=== PATIENT | female | born 1960 | race Caucasian/White ===

== ENCOUNTER 2023-12-28 10:09 | Inpatient (IN) ==
[2023-12-28] MEDS: OPTIRAY 320 125ml IV ONE (10:27)
--- NOTE | 2023-12-28 10:30 | Emergency Department Note ---
History of Present Illness General Chief complaint: TIA Symptoms Stated complaint: LT HAND NUMBNESS, CONFUSED, HISTORY OF DVT Time Seen by Provider: 12/28/23 10:17 History of Present Illness Provider complaint: Strokelike symptoms Onset (ago): hour(s) 2 62-year-old female presents emergency department for strokelike symptoms. Patient reports at 8 AM she began having difficulty using her left arm. She states it felt uncoordinated. She denies any falls or traumas. Denies any headaches. No blood thinners. does report that the patient appears more confused. Home Medications Medication Instructions Recorded Confirmed Type cyanocobalamin (vitamin B-12) 1,000 mcg PO QPM ##0 07/17/14 12/28/23 History 1,000 mcg tablet (Vitamin B-12) folic acid 400 mcg tablet 400 mcg PO QPM ##0 07/17/14 12/28/23 History cholecalciferol (vitamin D3) 25 25 mcg PO DAILY 12/28/23 12/28/23 History mcg (1,000 unit) tablet (Vitamin D3) escitalopram oxalate 10 mg tablet 10 mg PO PM 12/28/23 12/28/23 History Allergies Allergy/AdvReac Type Severity Reaction Status Date / Time Sulfa (Sulfonamide Allergy Intermediate hives Verified 12/28/23 13:49 Antibiotics) Past Med/Surg History Problem List (Updated 12/28/23 @ 14:32 by Shawn Bergeron MD) Wide-complex tachycardia (Acute) Cerebrovascular accident (Acute) Medical History (Updated 12/28/23 @ 14:32 by Shawn Bergeron MD) Leukocytoclastic vasculitis Hypercholesterolemia History of cervical cancer LBBB (left bundle branch block) DVT (deep venous thrombosis) Anxiety Anemia Sjogrens syndrome Surgical History (Updated 12/28/23 @ 11:15 by Leticia Tolliver PA-C) History of cervical polypectomy Family History (Updated 12/28/23 @ 11:15 by Leticia Tolliver PA-C) Other Asthma Breast cancer Heart disease Hypertension Lung cancer Social History Smoking Status: Never smoker Second Hand Exposure: No; Do You Dip or Chew Tobacco: No; Tobacco Cessation Education Requested by Patient: No Hx Alcohol Use: No Hx Substance Use: No Preferred Language: Japanese Communication Ability: Effective Computer Typesetter Keyliner Required: No Beliefs That Will Affect Care: None Current Living Situation: Spouse Other Information That Helps Us Care for You: No Feels Safe at Home: Yes Safety Concerns: Feels Safe At This Time Assistive Devices: Glasses Physical Exam Vital Signs Vital Signs - 24 hr 12/28/23 10:11 12/28/23 10:26 12/28/23 10:33 Temperature 36.8 C Temperature Source Skin Pulse Rate 91 H Pulse Rate [Apical] 96 H Pulse Rate from SpO2 Sensor Pulse Rhythm [Apical] Pulse Strength [Apical] Respiratory Rate 16 19 Respiratory Effort / Characteristics Non-Labored Spontaneous Respiratory Depth Normal Respiratory Pattern Regular Blood Pressure 153/80 H 143/83 H Blood Pressure [Left Arm] 151/84 H Blood Pressure Mean 104 96 Blood Pressure Mean [Left Arm] 106 Blood Pressure Position [Left Arm] Pulse Oximetry 100 98 Oxygen Delivery Method Room Air Room Air Sepsis Recent Fever Within 48 Hours No Sepsis New/Unexplained Change in Mental Status N/A Sepsis Action Taken by Nursing No Action Required End-Tidal CO2 12/28/23 10:35 12/28/23 10:39 12/28/23 10:42 Temperature Temperature Source Pulse Rate 99 H 92 H 90 Pulse Rate [Apical] Pulse Rate from SpO2 Sensor Pulse Rhythm [Apical] Pulse Strength [Apical] Respiratory Rate 22 18 Respiratory Effort / Characteristics Respiratory Depth Respiratory Pattern Blood Pressure Blood Pressure [Left Arm] Blood Pressure Mean Blood Pressure Mean [Left Arm] Blood Pressure Position [Left Arm] Pulse Oximetry Oxygen Delivery Method Sepsis Recent Fever Within 48 Hours Sepsis New/Unexplained Change in Mental Status Sepsis Action Taken by Nursing End-Tidal CO2 12/28/23 10:45 12/28/23 10:49 12/28/23 10:54 Temperature Temperature Source Pulse Rate 98 H Pulse Rate [Apical] 85 Pulse Rate from SpO2 Sensor Pulse Rhythm [Apical] Regular Pulse Strength [Apical] Normal Respiratory Rate 18 32 H Respiratory Effort / Characteristics Non-Labored Respiratory Depth Normal Respiratory Pattern Regular Blood Pressure 132/90 Blood Pressure [Left Arm] 132/90 Blood Pressure Mean 100 Blood Pressure Mean [Left Arm] 104 Blood Pressure Position [Left Arm] Lying Pulse Oximetry Oxygen Delivery Method Sepsis Recent Fever Within 48 Hours Sepsis New/Unexplained Change in Mental Status Sepsis Action Taken by Nursing End-Tidal CO2 12/28/23 10:57 12/28/23 11:10 12/28/23 11:15 Temperature Temperature Source Pulse Rate 92 H 144 H Pulse Rate [Apical] Pulse Rate from SpO2 Sensor 146 H Pulse Rhythm [Apical] Pulse Strength [Apical] Respiratory Rate 35 H 26 H Respiratory Effort / Characteristics Respiratory Depth Respiratory Pattern Blood Pressure 130/98 Blood Pressure [Left Arm] Blood Pressure Mean 108 Blood Pressure Mean [Left Arm] Blood Pressure Position [Left Arm] Pulse Oximetry 97 Oxygen Delivery Method Sepsis Recent Fever Within 48 Hours Sepsis New/Unexplained Change in Mental Status Sepsis Action Taken by Nursing End-Tidal CO2 12/28/23 11:15 12/28/23 11:15 12/28/23 11:15 Temperature Temperature Source Pulse Rate Pulse Rate [Apical] Pulse Rate from SpO2 Sensor Pulse Rhythm [Apical] Pulse Strength [Apical] Respiratory Rate Respiratory Effort / Characteristics Respiratory Depth Respiratory Pattern Blood Pressure 128/96 128/96 128/96 Blood Pressure [Left Arm] Blood Pressure Mean 117 117 117 Blood Pressure Mean [Left Arm] Blood Pressure Position [Left Arm] Pulse Oximetry Oxygen Delivery Method Sepsis Recent Fever Within 48 Hours Sepsis New/Unexplained Change in Mental Status Sepsis Action Taken by Nursing End-Tidal CO2 12/28/23 11:18 12/28/23 11:18 12/28/23 11:18 Temperature Temperature Source Pulse Rate 151 H 148 H Pulse Rate [Apical] 145 H Pulse Rate from SpO2 Sensor 145 H Pulse Rhythm [Apical] Pulse Strength [Apical] Respiratory Rate 20 20 Respiratory Effort / Characteristics Respiratory Depth Respiratory Pattern Blood Pressure Blood Pressure [Left Arm] 128/96 Blood Pressure Mean Blood Pressure Mean [Left Arm] 106 Blood Pressure Position [Left Arm] Pulse Oximetry 93 97 Oxygen Delivery Method Room Air Sepsis Recent Fever Within 48 Hours Sepsis New/Unexplained Change in Mental Status Sepsis Action Taken by Nursing End-Tidal CO2 12/28/23 11:35 12/28/23 11:35 12/28/23 11:35 Temperature Temperature Source Pulse Rate Pulse Rate [Apical] Pulse Rate from SpO2 Sensor Pulse Rhythm [Apical] Pulse Strength [Apical] Respiratory Rate Respiratory Effort / Characteristics Respiratory Depth Respiratory Pattern Blood Pressure 103/70 103/70 103/70 Blood Pressure [Left Arm] Blood Pressure Mean 82 82 82 Blood Pressure Mean [Left Arm] Blood Pressure Position [Left Arm] Pulse Oximetry Oxygen Delivery Method Sepsis Recent Fever Within 48 Hours Sepsis New/Unexplained Change in Mental Status Sepsis Action Taken by Nursing End-Tidal CO2 12/28/23 11:35 12/28/23 11:36 12/28/23 11:39 Temperature Temperature Source Pulse Rate 64 Pulse Rate [Apical] 71 Pulse Rate from SpO2 Sensor 64 Pulse Rhythm [Apical] Pulse Strength [Apical] Respiratory Rate 17 14 Respiratory Effort / Characteristics Non-Labored Respiratory Depth Normal Respiratory Pattern Blood Pressure 103/70 Blood Pressure [Left Arm] 103/70 Blood Pressure Mean 82 Blood Pressure Mean [Left Arm] 81 Blood Pressure Position [Left Arm] Pulse Oximetry 95 90 Oxygen Delivery Method Room Air Sepsis Recent Fever Within 48 Hours Sepsis New/Unexplained Change in Mental Status Sepsis Action Taken by Nursing End-Tidal CO2 26 12/28/23 11:40 12/28/23 11:40 12/28/23 11:42 Temperature Temperature Source Pulse Rate 92 H Pulse Rate [Apical] Pulse Rate from SpO2 Sensor Pulse Rhythm [Apical] Pulse Strength [Apical] Respiratory Rate 0 L Respiratory Effort / Characteristics Respiratory Depth Respiratory Pattern Blood Pressure 110/64 110/64 Blood Pressure [Left Arm] Blood Pressure Mean 77 77 Blood Pressure Mean [Left Arm] Blood Pressure Position [Left Arm] Pulse Oximetry Oxygen Delivery Method Sepsis Recent Fever Within 48 Hours Sepsis New/Unexplained Change in Mental Status Sepsis Action Taken by Nursing End-Tidal CO2 12/28/23 11:55 12/28/23 12:42 12/28/23 13:28 Temperature 36.7 C Temperature Source Oral Pulse Rate Pulse Rate [Apical] 108 H 73 73 Pulse Rate from SpO2 Sensor Pulse Rhythm [Apical] Pulse Strength [Apical] Respiratory Rate 20 20 19 Respiratory Effort / Characteristics Non-Labored Non-Labored Non-Labored Respiratory Depth Normal Normal Normal Respiratory Pattern Blood Pressure Blood Pressure [Left Arm] 134/71 121/70 137/72 Blood Pressure Mean Blood Pressure Mean [Left Arm] 92 87 93 Blood Pressure Position [Left Arm] Lying Pulse Oximetry 98 98 98 Oxygen Delivery Method Room Air Room Air Room Air Sepsis Recent Fever Within 48 Hours Sepsis New/Unexplained Change in Mental Status Sepsis Action Taken by Nursing End-Tidal CO2 12/28/23 13:35 Temperature Temperature Source Pulse Rate Pulse Rate [Apical] 66 Pulse Rate from SpO2 Sensor Pulse Rhythm [Apical] Pulse Strength [Apical] Respiratory Rate 20 Respiratory Effort / Characteristics Non-Labored Respiratory Depth Normal Respiratory Pattern Blood Pressure Blood Pressure [Left Arm] 131/76 Blood Pressure Mean Blood Pressure Mean [Left Arm] 94 Blood Pressure Position [Left Arm] Pulse Oximetry 98 Oxygen Delivery Method Room Air Sepsis Recent Fever Within 48 Hours Sepsis New/Unexplained Change in Mental Status Sepsis Action Taken by Nursing End-Tidal CO2 Physical Exam HENT: Exam performed. - Head: Normocephalic and atraumatic. EYES: Conjunctivae and EOM are normal. Right eye exhibits no discharge. Left eye exhibits no discharge. No scleral icterus. NECK: Normal range of motion. Neck supple. No JVD present. CV: Normal rate, regular rhythm, normal heart sounds and intact distal pulses. There is no peripheral edema. Palpable radial pulses bue. PULM/CHEST: Effort normal and breath sounds normal. No respiratory distress. No stridor. no wheezes. no rales. NEURO: NIHSS: 1 (7:1) Procedures Free Text Procedures Indication: Wide-complex tachycardia Verbal consent was obtained after the risks and benefits were explained. At this time, the risks of the procedure are less than the risks of NOT performing the procedure. A time out was taken and the correct patient and procedure identified. The patient was on supplemental oxygen and end tidal CO2 monitoring prior to the procedure. Suction, airway equipment, medications, respiratory equipment, ACLS cart, and appropriate personnel were prepared prior to the initiation of the procedure. Sedation was achieved utilizing Versed 2 mg and fentanyl 50 mcg. The biphasic defibrillator was set to 100 joules of energy and synched. After confirmation of sedation and "all clear" safety check the synchronized shock was delivered. This resulted in successful conversion of the dysrhythmia back into sinus rhythm. See nursing notes for dosages and times. There were no complications and the patient recovered uneventfully from the procedure. Course Course 1017: The patient was evaluated in room B1. A complete history and physical exam was performed Cardiac monitoring: An order was placed for continuous cardiac monitoring. The monitor shows a rate of 90 with sinus rhythm interpreted by me 1050: Spoke with Dr. Nadeem Coffman teleneurology who will evaluate the patient. 1110: CT of the head negative. Went to go discussed results with the patient and Dr. Silver who is on the telestroke cart. While discussing the possibility of pushing TNK, the patient started having PVCs and eventually went into what appeared to be a wide-complex tachycardia. Pads were applied to the patient and amiodarone bolus 150 mg or [address] Silver had no problems with starting the amiodarone and see there is no contraindication TNKase. After discussion with Dr. Silver about TNK while the amiodarone drip was infusing, the patient and elected for no TNK. 1120: Blood pressure signs stable. Patient reported no chest pain or difficulty breathing. Patient remained in wide-complex tachycardia. Patient does states she has a history of anxiety and feels very nervous. Ativan ordered for the patient with no significant improvement. Repeat bolus of amiodarone will be attempted. If this is unsuccessful we will most likely need to cardiovert the patient. 1130: Patient [place] tachycardia. No chest pain difficulty breathing. Blood pressure stable. Patient was cardioverted. See procedure note. After cardioversion patient appeared to have new left bundle branch block and hyperacute T waves. Will attempt to contact cardiology. 1145: Heart alert page. Hospitalist team Lillian at bedside 1150: Patient remains in sinus rhythm. Dr. Foley came to bedside. He stated he thought that the patient was in atrial flutter with a Albrecht C. He recommended no need for cardiac catheterization at this time. No heparin at this time. He recommends continuing the amiodarone drip and cardiology will be on consult patient is admitted to the hospital seen. Administered Medications Amiodarone HCl/Dextrose (Nexterone / D5w) 360 mg in 200 mls @ 33.333 mls/hr IV ONE ONE Stop: 12/28/23 17:13 Last Admin: 12/28/23 11:30 Dose: 1 mg/min, 33.3 mls/hr Documented By: MAREK Co-signed By: ISAK Metoprolol Tartrate (Metoprolol Tartrate 25 Mg Tab) 12.5 mg PO Q6H [facility] Stop: 01/27/24 12:29 Last Admin: 12/28/23 12:41 Dose: 12.5 mg Documented By: MAREK Discontinued Medications Amiodarone HCl/Dextrose (Amiodarone 150mg / 100ml D5w) Confirm Administered Dose 150 mg IV .STK-MED ONE Stop: 12/28/23 11:05 Last Admin: 12/28/23 11:16 Dose: Not Given Documented By: MAREK Amiodarone HCl (Amiodarone Iv Bolus & Drip) 1 each IV NOW STA; Protocol Stop: 12/28/23 11:05 Last Admin: 12/28/23 11:17 Dose: Not Given Documented By: ES Aspirin (Aspirin 81 Mg Chew) 324 mg PO NOW STA Stop: 12/28/23 11:38 Last Admin: 12/28/23 11:40 Dose: Not Given Documented By: ES Aspirin (Aspirin Chew 324 Mg) Confirm Administered Dose 324 mg .ROUTE .STK-MED ONE Stop: 12/28/23 11:38 Last Admin: 12/28/23 11:40 Dose: Not Given Documented By: ES Aspirin (Aspirin Chew 324 Mg) 324 mg PO ONCE ONE Stop: 12/28/23 11:39 Last Admin: 12/28/23 11:39 Dose: 324 mg Documented By: ES Clopidogrel Bisulfate (Clopidogrel Bisulfate 300 Mg Tab) Confirm Administered Dose 300 mg .ROUTE .STK-MED ONE Stop: 12/28/23 11:38 Last Admin: 12/28/23 11:40 Dose: Not Given Documented By: ES Clopidogrel Bisulfate (Clopidogrel Bisulfate 300 Mg Tab) 300 mg PO NOW STA Stop: 12/28/23 11:38 Last Admin: 12/28/23 11:39 Dose: 300 mg Documented By: ES Fentanyl Citrate (Fentanyl Citrate Pf 100 Mcg/2 Ml Vial) Confirm Administered Dose 100 mcg .ROUTE .STK-MED ONE Stop: 12/28/23 11:27 Last Increment: 12/28/23 11:34 Dose: 50 mcg Documented By: ES Fentanyl Citrate (Fentanyl Citrate Pf 100 Mcg/2 Ml Vial) Confirm Administered Dose 100 mcg .ROUTE .STK-MED ONE Stop: 12/28/23 11:46 Last Admin: 12/28/23 12:08 Dose: Not Given Documented By: ES Heparin Sodium (Porcine) (Heparin (Porcine) 1000 Unit/Ml 10 Ml (Shingles Roofer Helper Use Only)) Confirm Administered Dose 10,000 units .ROUTE .STK-MED ONE Stop: 12/28/23 11:45 Last Admin: 12/28/23 12:08 Dose: Not Given Documented By: ES Heparin Sodium/Sodium Chloride (Heparin In Nss Infusion 1000 Unit/500 Ml (2 U/Ml) Bag) Confirm Administered Dose 3,000 units IV .STK-MED ONE Stop: 12/28/23 11:46 Last Admin: 12/28/23 12:08 Dose: Not Given Documented By: ES Amiodarone HCl/Dextrose (Nexterone / D5w) 150 mg in 100 mls @ 600 mls/hr IV NOW STA Stop: 12/28/23 11:13 Last Infusion: 12/28/23 11:18 Dose: Infused Documented By: MAREK Co-signed By: YUDELKA Admin: 12/28/23 11:09 Dose: 600 mls/hr Documented By: MAREK Co-signed By: YUDELKA Amiodarone HCl/Dextrose (Nexterone / D5w) 150 mg in 100 mls @ 600 mls/hr IV NOW STA Stop: 12/28/23 11:50 Last Infusion: 12/28/23 11:28 Dose: Infused Documented By: MAREK Co-signed By: ISAK Admin: 12/28/23 11:18 Dose: 600 mls/hr Documented By: MAREK Co-signed By: ISAK Ioversol (Optiray 320 125ml) 112 ml IV ONCE ONE Stop: 12/28/23 10:27 Last Admin: 12/28/23 10:27 Dose: 112 ml Documented By: MILEY Ioversol (Optiray 350) Confirm Administered Dose 1 ml .ROUTE .STK-MED ONE Stop: 12/28/23 11:47 Last Admin: 12/28/23 12:08 Dose: Not Given Documented By: MAREK Lorazepam (Lorazepam 1 Mg/1 Ml Syr Ed Inj Use) Confirm Administered Dose 1 mg .ROUTE .STK-MED ONE Stop: 12/28/23 11:08 Last Admin: 12/28/23 11:17 Dose: 1 mg Documented By: MAREK Midazolam HCl (Midazolam Hcl 1 Mg/Ml 2ml Vial) Confirm Administered Dose 2 mg .ROUTE .STK-MED ONE Stop: 12/28/23 11:22 Last Admin: 12/28/23 11:34 Dose: 2 mg Documented By: MAREK Midazolam HCl (Midazolam Hcl 1 Mg/Ml 2ml Vial) Confirm Administered Dose 2 mg .ROUTE .STK-MED ONE Stop: 12/28/23 11:45 Last Admin: 12/28/23 12:08 Dose: Not Given Documented By: MAREK Miscellaneous (Stat Iv Infusion Titration Per Protocol) 1 each N/A NOW STA Stop: 12/28/23 11:05 Last Admin: 12/28/23 11:17 Dose: Not Given Documented By: MAREK Nicardipine HCl (Nicardipine 2,000 Mcg/20 Ml Syr) Confirm Administered Dose 2,000 mcg .ROUTE .STK-MED ONE Stop: 12/28/23 11:46 Last Admin: 12/28/23 12:08 Dose: Not Given Documented By: MAREK Nicardipine HCl (Nicardipine 2,000 Mcg/20 Ml Syr) Confirm Administered Dose 2,000 mcg .ROUTE .STK-MED ONE Stop: 12/28/23 11:47 Last Admin: 12/28/23 12:08 Dose: Not Given Documented By: MAREK Nicardipine HCl (Nicardipine 2,000 Mcg/20 Ml Syr) Confirm Administered Dose 2,000 mcg .ROUTE .STK-MED ONE Stop: 12/28/23 11:48 Last Admin: 12/28/23 12:09 Dose: Not Given Documented By: MAREK Nitroglycerin/Dextrose (Nitroglycerin/D5w 100mcg/Ml 20ml Syr) Confirm Administered Dose 2,000 mcg .ROUTE .STK-MED ONE Stop: 12/28/23 11:47 Last Admin: 12/28/23 12:09 Dose: Not Given Documented By: MAREK Critical Care Time Critical Care Time: Yes Total Critical Care Time: 63 I have personally spent greater than 63 minutes of critical care time in the direct management of this patient. This includes bedside care, interpretation of diagnostic studies, and testing, discussion with consultants, patient, and family members, and other required patient management activities. This 63 minutes is in excess of all separately billable procedures. Medical Decision Making Laboratory Data Attestation: I reviewed the patient's lab results. 12/28/23 10:22 12/28/23 10:22 Lab Results 12/28/23 12/28/23 Range/Units 10:20 10:22 WBC 4.55 L (4.8-10.8) K/ul RBC 4.22 (4.20-5.40) M/uL Hgb 12.1 (12.0-16.0) g/dl Hct 36.8 L (37.0-47.0) % MCV 87.2 (80.0-100.0) fL MCH 28.7 (25.0-34.0) pg MCHC 32.9 (32.0-36.0) g/dL RDW Std Deviation 41.6 (36.4-46.3) fL RDW Coeff of Wilber 13.3 (11.5-14.5) % Plt Count 236 (130-400) K/uL MPV 10.5 (9.4-12.4) fL Immature Gran % (Auto) 0.7 % Neut % (Auto) 81.8 % Lymph % (Auto) 13.8 % [place] % (Auto) 2.9 % Eos % (Auto) 0.4 % Baso % (Auto) 0.4 % Neut # (Auto) 3.72 (1.40-6.50) K/uL Lymph # (Auto) 0.63 L (1.20-3.40) K/uL [place] # (Auto) 0.13 (0.11-0.59) K/uL Eos # (Auto) 0.02 (0.00-0.50) K/uL Baso # (Auto) 0.02 (0.00-0.20) K/uL Immature Gran # (Auto) 0.03 (0.01-0.20) K/uL PT 10.7 (9.0-12.0) Seconds INR 1.0 (0.9-1.1) APTT 23 (21-31) Seconds PTT Ratio 0.9 Sodium 139 (136-145) mmol/L Potassium 3.6 (3.5-5.1) mmol/L Chloride 105 (98-107) mmol/L Carbon Dioxide 26 (21-32) mmol/L Anion Gap 8 (3-11) BUN 18 (6-23) mg/dl Creatinine 0.89 (0.6-1.2) mg/dl Est Cr Clr Drug Dosing 64.9 ml/min eGFR 72.80 BUN/Creatinine Ratio 20.2 H (10-20) Glucose 115 H (70-99(Fasting)) mg/dl POC Glucose 118 H (70-99) mg/dl Calcium 9.6 (8.6-10.3) mg/dl Magnesium 1.9 (1.7-2.4) mg/dl Total Bilirubin 0.5 (0.2-1.0) mg/dl AST 12 L (13-39) U/L ALT 8 (7-52) U/L Alkaline Phosphatase 71 (34-104) U/L Troponin I High Sens 5.5 (0-14) pg/ml Total Protein 9.2 H (6.0-8.3) gm/dl Albumin 4.1 (3.4-5.0) gm/dl Globulin 5.1 H (2.5-4.0) gm/dl Albumin/Globulin Ratio 0.8 L (0.9-2) Blood Type A Positive Antibody Screen NEGATIVE Imaging Data Attestation: I personally reviewed and interpreted this imaging study as follows: My Impression: CT head: No [facility] Radiologist's Impression: Chest X-Ray 12/28/23 10:17 XR chest 1V portable CLINICAL HISTORY: neuro deficit, acute stroke suspected COMPARISON STUDY: No previous studies for comparison. FINDINGS: Screws within the proximal left humerus are incidentally noted. There is no pneumothorax. Minimal bibasilar opacities are present. There is a small right pleural effusion. Cardiomediastinal silhouette is unremarkable. There is no evidence for overt pulmonary edema. IMPRESSION: 1. Small right pleural effusion. 2. Mild bibasilar opacities which favor atelectasis. An infectious process could appear similar but is considered less likely. ACT 112: Negative or not required by law. Electronically signed by: Fuad Ramos M.D. 12/28/2023 11:[address] 12/28/23 10:17 CT OF THE HEAD WITHOUT CONTRAST CLINICAL HISTORY: neuro deficit, acute stroke suspected COMPARISON STUDY: No previous studies for comparison. TECHNIQUE: Helical axial images of the head were obtained without IV contrast. Automated exposure control was utilized for the study. A dose lowering technique was utilized adhering to the principles of ALARA. FINDINGS: No acute intracranial hemorrhage, midline shift or mass effect is present. The ventricular system is unremarkable. The basal cisterns are patent. No extra-axial collections are present. There are no findings to suggest acute dural sinus thrombosis or acute territorial infarct. No significant calvarial abnormalities are present. Visualized portions of the sinuses and mastoid air cells are clear. IMPRESSION: No acute intracranial findings. ACT 112: Negative or not required by law. Electronically signed by: Fuad Ramos M.D. 12/28/2023 10:44 AM Head CTA 12/28/23 10:17 CT angio head w con, CT angio neck with con CLINICAL HISTORY: 63 years-old Female with neuro deficit, acute stroke suspected. Acute stroke like symptoms COMPARISON STUDY: Head CT of same day TECHNIQUE: Following the IV administration of 112 cc of Optiray, CT angiogram of the head and neck was performed. 3-D MIPS images are created and assessed. IV contrast was administered without complication. All measurements were obtained according to NASCET criteria. A dose lowering technique was utilized adhering to the principles of ALARA. CT DOSE: 1224.08 mGy.cm FINDINGS: CT ANGIOGRAM OF THE HEAD AND NECK: Three-vessel morphology of the thoracic aortic arch. Common carotid arteries are patent. There is moderate atherosclerotic plaque of the carotid bulbs without significant stenosis. The bilateral anterior and middle cerebral arteries are also patent. The vertebrobasilar system and posterior cerebral arteries are widely patent. There is no aneurysm, high-grade stenosis, or proximal branch occlusion identified. Dural sinuses appear patent. ORIF changes within the mandible. Small layering pleural effusions. Lung apices are clear without pneumothorax. Unremarkable soft tissues. No acute fracture. IMPRESSION: Unremarkable CTA of the head and neck. ACT 112: Negative or not required by law. The above report was generated using voice recognition software. It may contain grammatical, syntax or spelling errors. Electronically signed by: Cullen Hollis M.D. 12/28/2023 11:02 AM Neck CTA 12/28/23 10:17 CT angio head w con, CT angio neck with con CLINICAL HISTORY: 63 years-old Female with neuro deficit, acute stroke suspected. Acute stroke like symptoms COMPARISON STUDY: Head CT of same day TECHNIQUE: Following the IV administration of 112 cc of Optiray, CT angiogram of the head and neck was performed. 3-D MIPS images are created and assessed. IV contrast was administered without complication. All measurements were obtained according to NASCET criteria. A dose lowering technique was utilized adhering to the principles of ALARA. CT DOSE: 1224.08 mGy.cm FINDINGS: CT ANGIOGRAM OF THE HEAD AND NECK: Three-vessel morphology of the thoracic aortic arch. Common carotid arteries are patent. There is moderate atherosclerotic plaque of the carotid bulbs without significant stenosis. The bilateral anterior and middle cerebral arteries are also patent. The vertebrobasilar system and posterior cerebral arteries are widely patent. There is no aneurysm, high-grade stenosis, or proximal branch occlusion identified. Dural sinuses appear patent. ORIF changes within the mandible. Small layering pleural effusions. Lung apices are clear without pneumothorax. Unremarkable soft tissues. No acute fracture. IMPRESSION: Unremarkable CTA of the head and neck. ACT 112: Negative or not required by law. The above report was generated using voice recognition software. It may contain grammatical, syntax or spelling errors. Electronically signed by: Cullen Hollis M.D. 12/28/2023 11:02 AM ECG Data Attestation: I personally reviewed and interpreted this ECG as follows: Rate (beats per minute): 93 Rhythm: + normal sinus ECG Intervals/blocks: + Normal QRS, + Normal [place] and + Normal QT-c ECG ST segments: + Normal ST segments Additional Comments: EKG #2 at 1104: Wide-complex tachycardia with rate 150. Q or S126 QTc 364 EKG #3 at 1111: V. tach with rate of 155. QRS 120 QTc 555. EKG #4 at 1124 status post amiodarone 150 mg bolus over 10 minutes: Wide-complex tachycardia with rate 146. QRS 134 QTc 433 EKG #5 at 1129 status post 100 J cardioversion: Sinus rhythm with rate of 81. [place] 146 QRS [address] elevation or ST depression. Left bundle branch block present. Hyperacute T waves in leads V1, V2, V3. [facility] Narrative 1017: The patient was evaluated in room B1. A complete history and physical exam was performed Cardiac monitoring: An order was placed for continuous cardiac monitoring. The monitor shows a rate of 90 with sinus rhythm interpreted by me 1050: Spoke with Dr. Nadeem Coffman teleneurology who will evaluate the patient. 1110: CT of the head negative. Went to go discussed results with the patient and Dr. Silver who is on the telestroke cart. While discussing the possibility of pushing TNK, the patient started having PVCs and eventually went into what appeared to be a wide-complex tachycardia. Pads were applied to the patient and amiodarone bolus 150 mg or [address] Silver had no problems with starting the amiodarone and see there is no contraindication TNKase. After discussion with Dr. Silver about TNK while the amiodarone drip was infusing, the patient and elected for no TNK. 1120: Blood pressure signs stable. Patient reported no chest pain or difficulty breathing. Patient remained in wide-complex tachycardia. Patient does states she has a history of anxiety and feels very nervous. Ativan ordered for the patient with no significant improvement. Repeat bolus of amiodarone will be attempted. If this is unsuccessful we will most likely need to cardiovert the patient. 1130: Patient [place] tachycardia. No chest pain difficulty breathing. Blood pressure stable. Patient was cardioverted. See procedure note. After cardioversion patient appeared to have new left bundle branch block and hyperacute T waves. Will attempt to contact cardiology. 1145: Heart alert page. Hospitalist team Lillian at bedside 1150: Patient remains in sinus rhythm. Dr. Foley came to bedside. He stated he thought that the patient was in atrial flutter with a Albrecht C. He recommended no need for cardiac catheterization at this time. No heparin at this time. He recommends continuing the amiodarone drip and cardiology will be on consult patient is admitted to the hospital seen. Impression & Plan Cerebrovascular accident, Wide-complex tachycardia Discharge Plan Visit Data Chief Complaint: TIA Symptoms Stated Complaint: LT HAND NUMBNESS, CONFUSED, HISTORY OF DVT ED Provider: Shawn Bergeron Discharge Problem: Cerebrovascular accident, Wide-complex tachycardia Patient Disposition: Admitted As Inpatient Forms Stand Alone Forms: [facility] Prescriptions Prescriptions: No Action ALBUTEROL SULFATE (PROAIR HFA) 108 MCG/ AER 2 puff Inhalation QID PRN (Reason: Shortness of Breath) Qty: 0 Ferrous Sulfate 325 MG tablet 325 mg PO TIDM Qty: 90 0RF Warfarin Sod (Coumadin) 5 MG tablet 5 mg PO DAILY@16 Qty: 30 0RF FERROUS SULFATE 325 MG tablet 325 mg PO TID Qty: 0 WARFARIN SODIUM (COUMADIN) 5 MG tablet 5 mg PO 6XWK Qty: 0 Warfarin Sod (Coumadin) 2.5 MG tablet 2.5 mg PO qtues Qty: 0 CYANOCOBALAMIN (VITAMIN B12) 1,000 MCG tablet 1,000 mcg PO QPM Qty: 0 Folic Acid 400 MCG tablet 1,000 mcg PO QPM Qty: 0 Sertraline (Zoloft) 50 MG tablet 50 mg PO QAM Qty: 0 Referrals Referrals: Sudhir Vines DO [Primary Care Provider] - Discharge Problem: Cerebrovascular accident Qualifiers: CVA mechanism: unspecified Qualified Code(s): I63.9 - Cerebral infarction, unspecified
--- NOTE | 2023-12-28 10:46 | CT Scan Report ---
CT OF THE HEAD WITHOUT CONTRAST CLINICAL HISTORY: neuro deficit, acute stroke suspected COMPARISON STUDY: No previous studies for comparison. TECHNIQUE: Helical axial images of the head were obtained without IV contrast. Automated exposure con trol was utilized for the study. A dose lowering technique was utilized adhering to the principles o f ALARA. FINDINGS: No acute intracranial hemorrhage, midline shift or mass effect is present. The ventricular system is unremarkable. The basal cisterns are patent. No extra-axial collections are present. There are no findings to suggest acute dural sinus thrombosis or acute territorial infarct. No significant calvarial abnormalities are present. Visualized portions of the sinuses and mastoid air cells are matt ar. IMPRESSION: No acute intracranial findings. ACT 112: Negative or not required by law. Electronically signed by: Fuad Ramos M.D. 12/28/2023 10:44 AM
[2023-12-28 10:51] LABS: Basophils # (auto) 0.02 K/uL (0.00-0.20); Basophils % (auto) 0.4 %; Eosinophils # (auto) 0.02 K/uL (0.00-0.50); Eosinophils % (auto) 0.4 %; Hematocrit (blood only) 36.8 % (37.0-47.0); Hemoglobin 12.1 g/dl (12.0-16.0); Immature Granulocytes # (auto) 0.03 K/uL (0.01-0.20); Immature Granulocytes % (auto) 0.7 %; Lymphocytes # (auto) 0.63 K/uL (1.20-3.40); Lymphocytes % (auto) 13.8 %; Mean Corpuscular Hemoglobin 28.7 pg (25.0-34.0); Mean Corpuscular Hgb Conc 32.9 g/dL (32.0-36.0); Mean Corpuscular Volume 87.2 fL (80.0-100.0); Mean Platelet Volume 10.5 fL (9.4-12.4); Monocytes # (auto) 0.13 K/uL (0.11-0.59); Monocytes % (auto) 2.9 %; Neutrophils # (auto) 3.72 K/uL (1.40-6.50); Neutrophils % (auto) 81.8 %; Platelet Count 236 K/uL (130-400); RDW Coefficient of Variation 13.3 % (11.5-14.5); RDW Standard Deviation 41.6 fL (36.4-46.3); Red Blood Count 4.22 M/uL (4.20-5.40); White Blood Count 4.55 K/ul (4.8-10.8)
--- NOTE | 2023-12-28 11:03 | CT Scan Report ---
CT angio head w con, CT angio neck with con CLINICAL HISTORY: 63 years-old Female with neuro deficit, acute stroke suspected. Acute stroke lik e symptoms COMPARISON STUDY: Head CT of same day TECHNIQUE: Following the IV administration of 112 cc of Optiray, CT angiogram of the head and neck wa s performed. 3-D MIPS images are created and assessed. IV contrast was administered without complicat ion. All measurements were obtained according to NASCET criteria. A dose lowering technique was utili zed adhering to the principles of ALARA. CT DOSE: 1224.08 mGy.cm FINDINGS: CT ANGIOGRAM OF THE HEAD AND NECK: Three-vessel morphology of the thoracic aortic arch. Common carotid arteries are patent. There is mod erate atherosclerotic plaque of the carotid bulbs without significant stenosis. The bilateral anterio r and middle cerebral arteries are also patent. The vertebrobasilar system and posterior cerebral art eries are widely patent. There is no aneurysm, high-grade stenosis, or proximal branch occlusion iden tified. Dural sinuses appear patent. ORIF changes within the mandible. Small layering pleural effusions. Lung apices are clear without pne umothorax. Unremarkable soft tissues. No acute fracture. IMPRESSION: Unremarkable CTA of the head and neck. ACT 112: Negative or not required by law. The above report was generated using voice recognition software. It may contain grammatical, syntax o r spelling errors. Electronically signed by: Cullen Hollis M.D. 12/28/2023 11:02 AM
--- NOTE | 2023-12-28 11:03 | XRay Report ---
XR chest 1V portable CLINICAL HISTORY: neuro deficit, acute stroke suspected COMPARISON STUDY: No previous studies for comparison. FINDINGS: Screws within the proximal left humerus are incidentally noted. There is no pneumothorax. M inimal bibasilar opacities are present. There is a small right pleural effusion. Cardiomediastinal si lhouette is unremarkable. There is no evidence for overt pulmonary edema. IMPRESSION: 1. Small right pleural effusion. 2. Mild bibasilar opacities which favor atelectasis. An infectious process could appear similar but i s considered less likely. ACT 112: Negative or not required by law. Electronically signed by: Fuad Ramos M.D. 12/28/2023 11:01 AM
[2023-12-28] MEDS ORDERED: 0.2 MICRON FILTER SET 1 EACH IV STA (11:04)
[2023-12-28 11:07] LABS: Albumin Globulin Ratio 0.8 (0.9-2); Albumin Level 4.1 gm/dl (3.4-5.0); BUN Creatinine Ratio 20.2 (10-20); Bilirubin,Total 0.5 mg/dl (0.2-1.0); Calcium 9.6 mg/dl (8.6-10.3); Creatinine Clr Calc Pharmacy 64.9 ml/min; Globulin 5.1 gm/dl (2.5-4.0); Magnesium 1.9 mg/dl (1.7-2.4); Potassium 3.6 mmol/L (3.5-5.1); Total Protein 9.2 gm/dl (6.0-8.3)
[2023-12-28] MEDS: AMIODARONE / D5W 150 MG/100 ML BAG IV STA ×2 (11:09→11:18)
[2023-12-28 11:10] LABS: Troponin I High Sensitivity 5.5 pg/ml (0-14)
[2023-12-28] MEDS: AMIODARONE 150MG / 100ML D5W IV ONE (11:16)
[2023-12-28] MEDS: AMIODARONE IV BOLUS & DRIP IV STA (11:17)
[2023-12-28] MEDS: LORazepam 1 MG/1 ML SYR ED Inj Use ONE (11:17)
[2023-12-28] MEDS: STAT IV Infusion **Titration per Protocol STA (11:17)
[2023-12-28 11:18] LABS: Partial Thromboplastin Ratio 0.9; Partial Thromboplastin Time 23 Seconds (21-31); Prothrombin Time 10.7 Seconds (9.0-12.0)
[2023-12-28] MEDS: AMIODARONE / D5W 360 MG/200 ML BAG IV ONE (11:30)
[2023-12-28] MEDS: MIDAZOLAM HCL 1 MG/ML 2ML VIAL ONE ×2 (11:34→12:08)
[2023-12-28] MEDS: fentaNYL citrate PF 100 MCG/2 ML VIAL ONE ×2 (11:34→12:08)
[2023-12-28] MEDS: ASPIRIN CHEW 324 MG PO ONE (11:39)
[2023-12-28] MEDS: CLOPIDOGREL BISULFATE 300 MG TAB PO STA (11:39)
[2023-12-28] MEDS: ASPIRIN CHEW 324 MG ONE (11:40)
[2023-12-28] MEDS: CLOPIDOGREL BISULFATE 300 MG TAB ONE (11:40)
[2023-12-28] MEDS: ASPIRIN 81 MG CHEW PO STA (11:40)
[2023-12-28] MEDS ORDERED: 0.2 MICRON FILTER SET 1 EACH IV ONE (11:41)
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
[2023-12-28] MEDS: HEPARIN (PORCINE) 1000 UNIT/ML 10 ML (CATH LAB USE ONLY) ONE (12:08)
[2023-12-28] MEDS: OPTIRAY 350 ONE (12:08)
[2023-12-28] MEDS: niCARdipine 2,000 MCG/20 ML SYR ONE ×3 (12:08→12:09)
[2023-12-28] MEDS: NITROGLYCERIN/D5W 100MCG/ML 20ML SYR ONE (12:09)
[2023-12-28] MEDS: METOPROLOL TARTRATE 25 MG TAB PO SCH (12:41)
--- OUTSIDE RECORDS SUMMARY | 2023-12-28 15:16 | External Medical Summary | Summary of Care ---
Author Name Unknown Organization [facility] Address [address] [facility] [place] [address] Phone [phone] Care Team Providers Care Hydrogen Plant Operator Name Role Phone Marleny Choi DO Primary Care Provider [phone] Reason for Visit * Reason Comments eRx-Medication Refill Encounter Details Date Type Department Care Team (Late st Contact Info) Description 11/12/2023 Refill Family Practice [facility] [address] [facility] [place] [address] Marleny Choi DO [address] [facility] [place] [address] LUKE (generalized anxiety disorder) Allergies Active Allergy Reactions Criticality Noted Date Comments Pollen Other (Please comment) 07/08/2022 sneeze Sulfa Antibiotics 04/29/2000 Hives documented as of this encounter (statuses as of 11/13/2023) Medications Medication Sig Dispensed Refills Start Date End Date Status Cyanocobalamin (VITAMIN B-12) 1000 MCG Tablet 1 daily Active folic acid 1 MG Tablet 1 daily Active Cholecalciferol (VITAMIN D) 1000 UNITS Tablet 5 Tablets. Active Escitalopram Oxalate 10 MG Oral Tablet (Lexapro)Indicati ons:LUKE (generalized anxiety disorder) Take 1 tablet by mouth once daily 90 Tablet 2 11/13/2023 Active Escitalopram Oxalate 10 MG Oral Tablet (Lexapro)Indicati ons:LUKE (generalized anxiety disorder) Take 1 Tablet by mouth daily. 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 LBBB (left bundle branch block) 04/12/2014 Vitamin D deficiency 12/07/2013 Overview: Taking 1000 IU daily. Sjogren's syndrome 06/20/2013 Overview: Followed by Endocrine. Overweight (BMI 25.0-29.9) 11/24/2012 Hypercholesterolemia 09/29/2011 Overview: LDL 141 in 2009 Family history of other cardiovascular diseases 04/21/2005 Overview: ICD-10 update of inactive term FAM HX-DIABETES MELLITUS 04/21/2005 FM [id number] DIS NEC 04/21/2005 documented as of this encounter (statuses as of 11/13/2023) Resolved Problems Problem Noted Date Diagnosed Date Resolved Date Cancer of cervix 10/02/2017 07/09/2021 Overview: 2003, cone, for microinvasive cancer,at [facility]. Nl paps since. 2018 Pap and HPV negative. History of loop electrical e xcision procedure (LEEP) 01/09/2015 01/09/2015 Overview: 2003 Squamous Cell Malignant neoplasm of corpus uteri 01/09/2015 01/14/2017 Overview: 2003. Annual paps. DVT (deep venous thrombosis) 05/03/2014 02/05/2015 Overview: 04/12/2014 LLE Presence of inferior vena cava filter 04/12/2014 07/23/2014 Overview: Removed 07/17/2014 Jasmin Soriano MD Warfarin anticoagulation 04/12/2014 Overview: 04/12/2014 extensive DVT LLE, TPA, thrombectomy and IVC filter placed. Jasmin Soriano MD at [facility] 07/17/2014 IVC filter removed Positive RADHA (antinuclear antibody) 05/15/2013 06/20/2013 Acute bronchitis, complicated 04/22/2009 03/27/2014 NONE 01/20/2002 11/24/2012 documented as of this encounter (statuses as of 11/13/2023) Immunizations Name Administration Dates Next Due COVID-19 mRNA, LNP-s, No Pre serve, 2-Dose Series (Pfizer) 07/05/2020,06/14/2020 Pneumococcal Polysaccharide PPV23 (Pneumovax) Seasonal Influenza, PF, 6 M & above, IM , (FluLaval or Fluzone) 11/28/2020,01/15/2018 Seasonal Influenza, Quadrivalent, No Preserve, I M 11/27/2014 TDAP (age 10 and older)(Boostrix) 09/03/2020 TDAP, Age 7 and older, IM (Adacel) 04/28/2008 Zoster Vaccine Recombinant (Shingrix) 12/16/2022 ,06/10/2022 documented as of this encounter Social History Tobacco Use Types Packs/Day Years Used Date Smoking Tobacco: Never Smokeless Tobacco: Never Alcohol Use Standard Drinks/Week Comments No 0 (1 standard drink = 0.6 oz pur e alcohol) PHQ-2 Answer Date Recorded PHQ-2 Score 0 06/21/2019 Hunger Vital Sign Answer Date Recorded Within the past 12 months, y ou worried that your food would run out before you got the money to buy more. Never true 03/05/19 24 Within the past 12 months, t he food you bought just didn't last and you didn't have money to get more. Never true 03/05/2023 Childcare Answer Date Recorded Do you feel overwhelmed with taking care of a child, family member or friend? No 03/05/2023 Does your family need help f inding childcare? (Household - for ages 0-17 years) Not on file 03/05/2023 Clothing Answer Date Recorded Have you been unable to get clothing when it was really needed? Yes 03/05/2023 Is your family able to get c lothes or diapers when needed? (Household - for ages 0-17 years) Not on file 03/05/2023 Personal Safety Answer Date Recorded Do you feel unsafe or have concerns for your saf ety? No 03/05/2023 Do you have concerns for you r family's safety? (Household - for ages 0-17 years) Not on file 03/05/2023 Utilities Answer Date Recorded Do you have trouble paying y our heating, water, or electric bill? No 03/05/2023 Is your family able to pay t he heat, water, or electric bill? (Household - for ages 0-17 years) Not on file 03/05/2023 Does your family have access to good internet? (Household - for ages 0-17 years) Not on file 03/05/2023 Employment Status Answer Date Recorded Are you unemployed or without regular income? No 03/05/2023 Does the household have a re lar source of income? (Household - for ages 0-17 years) Not on file 03/05/2023 Social Connections Answer Date Recorded How often do you feel lonely or isolated from th ose around you? Never 03/05/2023 Financial Resource Strain Answer Date R ecorded Do you have any trouble payi ng for your medications, or do you think you might in the future? No 03/05/2023 Does your family have troubl e paying for medicine? (Household - for ages 0-17 years) Not on file 03/05/2023 Transportation Needs Answer Date Record ed READ ONLY Do you have troubl e getting a ride to medical visits or work? Never True 03/05/2023 Does your family have a hard time getting a ride to doctors visits? (Household - for ages 0-17 years) Not on file 03/05/2023 Has lack of transportation k ept you from medical appointments, meetings, work, or from getting things needed for daily living? Check all that apply. (Adult - for ages 18 years and over) Not on file 03/05/2023 Do you (or your family) have trouble finding or paying for a ride (transportation)? (Household - for ages 0-17 years) Not on file 03/05/2023 Housing Stability Answer Date Recorded Do you currently live in a s helter or have no steady place to sleep at night? No 03/05/2023 READ ONLY Do you think you a re at risk of becoming homeless? No 03/05/2023 Does your family worry about paying for your home or becoming homeless? (Household - for ages 0-17 years) Not on file 0 03/05/2023 Are you homeless or worried that you might be in the future? (Adult - for ages 18 years and over) Not on file Are you (or your family) norman eless or worried that you might be in the future? (Household - for ages 0-17 years) Not on file Food Insecurity Answer Date Recorded Do you need food for this week? No 03/05/2023 Are you able to get enough f ood for your family? (Household - for ages 0-17 years) Not on file 03/05/2023 Does your family need food t his week? (Household - for ages 0-17 years) Not on file 03/05/2023 Do you always have enough fo od for your family? (Household - for ages 0-17 years) Not on file 03/05/2023 Sex and Gender Information Value Date Recorded Sex Assigned at Female 11/19/2020 8:50 AM EDT Gender Identity Female 11/19/2020 8:50 AM EDT Sexual Orientation Straight 11/19/2020 8: 50 AM EDT Job Start Date Occupation Industry Not on file Not on file Not on file documented as of this encounter Miscellaneous Notes * Telephone Encounter - Janae Yu [facility] - 11/13/2023 11:42 AM EDT Signed Prescriptions: Disp Refills Escitalopram Oxalate 10 MG Oral Tablet (Le*90 Tab*2 Sig: Take 1 tablet by mouth once dailyAuthorizing Provider: MARLENY CHOI User: JANAE YU documented in this encounter Plan of Treatment Upcoming Encounters Date Type Department Care Team (Late st Contact Info) Description 02/01/2024 11:40 AM EST Office Visit Family Practice [facility] [address] [place] [address] Marleny Choi, [address] [place] [address] 02/12/2024 9:30 AM EST Imaging Radiology [facility] [address] [place] [address] 08/18/2024 10:30 AM EDT Office Visit Rheumatology [facility] [address] [place] [address] Vikas Gordon PA-C [address] [place] [address] 09/02/2024 11:30 AM EDT Office Visit Gynecology/Obstetics [place] [address] [place] [phone] Flores Valdovinos PA-C [address] [place] [address] Scheduled Procedures Name Priority Associated Diagnoses Date/Ti me COLONOSCOPY FLEXIBLE PROXIMAL DIAGNOSTIC Recall History of colon polyps Health Maintenance Due Date Last Done Comments HIV Screening 09/21/1975 Hepatitis C Screening 1978 Cologuard 2005 Fecal Occult Blood Test 2005 Sigmoidoscopy 2005 Depression Screening 06/15/2020 06/16/2019 Colonoscopy 07/13/2022 07/13/2017, 05/2017, 11/24/2011, Additional history exists Colorectal Cancer Screening 07/13/2022 COVID-19 Vaccine ( season) 2023 07/05/2020, 06/14/2020 Influenza Vaccine (FLU shot) (#1) 2023 11/28/2020, 01/15/2018, 11/27/2014 Mammogram 02/11/2024 02/10/2023, 01/11, 02/04/2021, Additional history exists Diabetes Screening 12/11/2025 12/11/2022, 0 07/09/2021, 05/16/2020, Additional history exists Pap Smear 09/02/2026 09/03/2023, 02/09, 02/24/2019, Additional history exists Lipid Panel 12/12/2027 12/11/2022, 06/11, 05/16/2020, Additional history exists Cervical Cancer Screening 09/02/2028 HPV/Co-Test 09/02/2028 09/03/2023 DTap/Tdap Vaccines (3 - Td or Tdap) 09/03/2030 09/03/2020, 04/28/2008 Pneumococcal Vaccine: Pediatrics (0 to 5 Years) and At-Risk Patients (6 to 64 Years) Aged Out 11/27/2014 No longer eligible based on patient's age to complete this topic RETIRED - COLONOSCOPY-EVERY 5 YRS AGES 18-100 Discontinued 07/13/2017, 07/13/2017, 11/24/2011, Additional history exists Zoster Vaccines Completed 12/16/2022, 06/10/2022 HPV (Gardasil) Vaccine Aged Out No lo nger eligible based on patient's age to complete this topic Hepatitis B Vaccine Aged Out No longe r eligible based on patient's age to complete this topic MENINGOCOCCAL (MENACTRA/MENVEO) Aged Out No longer eligible based on patient's age to complete this topic documented as of this encounter Medical Devices Not on filedocumented as of this encounter Visit Diagnoses Diagnosis LUKE (generalized anxiety disorder) Generalized anxiety disorder documented in this encounter Care Teams Hydrogen Plant Operator Relationship Specialty Start Date End Date Marleny Choi DO [address] [place], [place] [address] PCP - General Family Medicine 09/07/15 documented as of this encounter
--- OUTSIDE RECORDS SUMMARY | 2023-12-28 15:16 | External Medical Summary | Summary of Care ---
Author Name Unknown Organization [facility] Address [address] [facility] [place] [address] Phone [phone] Care Team Providers Care Fire Support Man Name Role Phone Sudhir Vines DO Primary Care Provider [phone] Reason for Visit * Reason Onset Date Comments Appointment 07/31/2023 Encounter Details Date Type Department Care Team (Late st Contact Info) Description 07/31/2023 Telephone Family Practice [facility] [address] [place] [address] [facility] [place] [address] Sudhir Vines DO [address] [facility] [place] [address] Appointment Allergies Active Allergy Reactions Criticality Noted Date Comments Pollen Other (Please comment) 07/08/2022 sneeze Sulfa Antibiotics 04/29/2000 Hives documented as of this encounter (statuses as of 10/05/2023) Medications Medication Sig Dispensed Refills Start Date End Date Status Cyanocobalamin (VITAMIN B-12) 1000 MCG Tablet 1 daily Active folic acid 1 MG Tablet 1 daily Active Cholecalciferol (VITAMIN D) 1000 UNITS Tablet 5 Tablets. Active Escitalopram Oxalate 10 MG Oral Tablet (Lexapro)Indications: LUKE (generalized anxiety disorder) Take 1 Tablet by mouth daily. 30 Tablet 5 05/28/2023 Active documented as of this encounter (statuses as of 10/05/2023) Active Problems Problem Noted Date Diagnosed Date [...] inactive term FAM HX-DIABETES MELLITUS 04/21/2005 FM [id number] DIS NEC 04/21/2005 documented as of this encounter (statuses as of 10/05/2023) Resolved Problems Problem Noted Date Diagnosed Date Resolved Date Cancer of cervix 10/02/2017 07/09/2021 Overview: 2003, cone, for microinvasive cancer,at [facility]. Nl paps since. 2018 Pap and HPV [...] IVC filter placed. Jasmin Soriano MD at [facility] 07/17/2014 IVC filter removed Positive RADHA (antinuclear antibody) 05/15/2013 06/20/2013 Acute bronchitis, complicated 04/22/2009 03/27/2014 NONE 01/20/2002 11/24/2012 documented as of this encounter (statuses as of 10/05/2023) Immunizations Name Administration Dates Next Due COVID-19 [...] encounter Miscellaneous Notes * Telephone Encounter - Kanwal Ramos OSA - 10/05/2023 2:34 PM EDT Left message for patient to return call to schedule. 10/05/2023 2:34 PM * Telephone Encounter - Lauren Diana OSA - 10/01/2023 8:32 AM EDT Lmm TRANG Varma 10/01/2023 8:32 AM * Telephone Encounter - Kaycee Reid OSA - 07/31/2023 10:25 AM EDT Please schedule this patient for a colonoscopy. documented in this encounter Plan of Treatment Upcoming Encounters Date Type Department Care Team (Late st Contact Info) Description 02/01/2024 11:40 AM EST Office Visit Family Practice [facility] [address] [place] [address] Sudhir Vines, [address] [place] [address] 02/12/2024 9:30 AM EST Imaging Radiology [address] [place] [address] 08/18/2024 10:30 AM EDT Office Visit Rheumatology [facility] [address] [place] [address] Vikas Gordon PA-C [address] [place] [address] 09/02/2024 11:30 AM EDT Office Visit Gynecology/Obstetics [place] [address] [place] [phone] Flores Valdovinos PA-C [address] [place] [address] Scheduled Procedures Name Priority Associated Diagnoses Date/Ti me COLONOSCOPY FLEXIBLE PROXIMAL DIAGNOSTIC Recall History of colon polyps Health Maintenance Due Date Last Done Comments HIV Screening 09/21/1975 Hepatitis C Screening 1978 Cologuard 2005 Fecal Occult Blood Test 2005 Sigmoidoscopy 2005 Depression Screening 06/15/2020 06/16/2019 Colonoscopy 07/13/2022 07/13/2017, 0605/2017, 11/24/2011, Additional history exists Colorectal Cancer Screening 07/13/2022 COVID-19 Vaccine ( season) 2022 07/05/2020, 06/14/2020 Influenza Vaccine (FLU shot) (#1) 2023 11/28/2020, 01/15/2018, 11/27/2014 Mammogram 02/11/2024 02/10/2023, 01/11, 02/04/2021, Additional history exists Diabetes Screening 12/11/2025 12/11/2022, 0 07/09/2021, 05/16/2020, Additional history exists Pap Smear 09/02/2026 09/03/2023, 02/09, 02/24/2019, Additional history exists Lipid Panel 12/12/2027 12/11/2022, 06/11, 05/16/2020, Additional history exists Cervical Cancer Screening 09/02/2028 HPV/Co-Test 09/02/2028 09/03/2023 DTaP,Tdap,and Td Vaccines (3 - Td or Tdap) 09/03/2030 [...] Not on filedocumented as of this encounter Care Teams Fire Support Man Relationship Specialty Start Date End Date Sudhir Vines DO [address] [place] [address] PCP - General Family Medicine 09/07/15 documented as of this encounter
--- OUTSIDE RECORDS SUMMARY | 2023-12-28 15:16 | External Medical Summary ---
Author Name Unknown Address Unknown Organization K01:LABORATORY [place] [address] Laboratory Report Ordering Provider Test Date Status DWAYNE BEJARANO 09/03/2023 15:54:00 Final Observation Date Value Abnormality Reference (Units ) Status Human papilloma virus E6+E7 mRNA [Presence] in Cervix by CHELSEA with probe detection 09/03/2023 15:54:00 Negative Not Applicable Final No high/intermediate-risk Hu man Papillomavirus (HPV E6/E7 messenger RNA) detected by nucleic acid amplification.

This assay looks for high/intermediate risk Human Papillomavirus (HPV E6/E7 messenger RNA) by nucleic acid amplification. This assay includes the qualitative detection of HPV types 16,18,31,33,35,39,45,51,52,56,58,59,66 and 68 from cervical specimens.
This assay has been FDA cleared for Thin prep collection vials.
This assay has not been approved for use as a primary screening test for HPV and should be tested in conjunction with a PAP screen.
If collected utilizing a Surepath vial, the collection and specimen preparation of this test was developed, and its performance characteristics determined by [employer]. It has not been cleared or approved by the U.S. Food and Drug Administration (FDA). The FDA has determined that such clearance or approval is not necessary.
This assay has been performed at [facility], [address] [place] [address], [place]. [address]. Performing Location LABORATORY [address] [address]
--- OUTSIDE RECORDS SUMMARY | 2023-12-28 15:16 | External Medical Summary | Summary of Care ---
Author Name Unknown Organization [facility] Address [address] [facility] [place] [address] Phone [phone] Care Team Providers Care Business Planning Director Name Role Phone Sudhir Vines DO Primary Care Provider [phone] Encounter Details Date Type Department Care Team (Late st Contact Info) Description 08/11/2023 Orders Only PATIENT PORTAL DO NOT DELETE THIS DEPT USED BY [place] [facility] [id number] Allergies Active Allergy Reactions Criticality Noted Date Comments Pollen Other (Please comment) 07/08/2022 sneeze Sulfa Antibiotics 04/29/2000 Hives documented as of this encounter (statuses as of 08/11/2023) Medications Medication Sig Dispensed Refills Start Date [...] as of this encounter (statuses as of 08/11/2023) Active Problems Problem Noted Date Diagnosed Date [...] inactive term FAM HX-DIABETES MELLITUS 04/21/2005 FM [id number] DIS NEC 04/21/2005 documented as of this encounter (statuses as of 08/11/2023) Resolved Problems Problem Noted Date Diagnosed Date Resolved Date Cancer of cervix 10/02/2017 07/09/2021 Overview: 2003, cone, for microinvasive cancer,at [facility]. Nl paps since. 2018 Pap and HPV [...] IVC filter placed. Jasmin Soriano MD at [facility] 07/17/2014 IVC filter removed Positive RADHA (antinuclear antibody) 05/15/2013 06/20/2013 Acute bronchitis, complicated 04/22/2009 03/27/2014 NONE 01/20/2002 11/24/2012 documented as of this encounter (statuses as of 08/11/2023) Immunizations Name Administration Dates Next Due COVID-19 [...] 03/05/2023 Does the household have a re gular source of income? (Household - for ages [...] on file documented as of this encounter Plan of Treatment Upcoming Encounters Date Type Department Care Team (Late st Contact Info) Description 09/03/2023 3:30 PM EDT Office Visit Gynecology/Obstetics [place] [address] [place] [phone] Flores Valdovinos PA-C [address] [place] [address] 02/01/2024 11:40 AM EST Office Visit Family Practice [facility] [address] [place] [address] Sudhir Vines, DO [address] [facility] [place] [address] 08/18/2024 10:30 AM EDT Office Visit Rheumatology [place] [id number] [place], [place] [address] Vikas Gordon PAZhaoC [address] [place] [address] Scheduled Procedures Name Priority Associated Diagnoses Date/Ti me COLONOSCOPY FLEXIBLE PROXIMAL DIAGNOSTIC Recall History of colon polyps Health Maintenance Due Date Last Done Comments HIV Screening 09/21/1975 Hepatitis C Screening 1978 HPV/Co-Test 1990 Cologuard 2005 Fecal Occult Blood Test 2005 Sigmoidoscopy 2005 Depression Screening 06/15/2020 06/16/2019 Colonoscopy 07/13/2022 07/13/2017, 05/2017, 11/24/2011, Additional history exists Colorectal Cancer Screening 07/13/2022 COVID-19 Vaccine ( - season) 2022 07/05/2020, 06/14/2020 Cervical Cancer Screening 02/27/2023 Pap Smear 02/27/2023 02/28/2020, 02/09, 10/02/2017, Additional history exists Influenza Vaccine (FLU shot) (Season Ended) 2023 11/28/2020, 01/15/2018, 11/27/2014 Mammogram 02/11/2024 02/10/2023, 01/11, 02/04/2021, Additional history exists Diabetes Screening 12/11/2025 12/11/2022, 0 07/09/2021, 05/16/2020, Additional history exists Lipid Panel 12/12/2027 12/11/2022, 06/11, 05/16/2020, Additional history exists DTaP,Tdap,and Td Vaccines (3 - Td or Tdap) 09/03/2030 09/03/2020, 04/28/2008 Pneumococcal Vaccine: Pediatrics (0 to 5 Years) and At-Risk Patients (6 to 64 Years) Aged Out 11/27/2014 No longer eligible based on patient's age to complete this topic RETIRED - COLONOSCOPY-EVERY 5 YRS AGES 18-100 Discontinued 07/13/2017, 07/13/2017, 11/24/2011, Additional history exists Zoster Vaccines Completed 12/16/2022, 06/10/2022 GARDASIL-HPV IMMUNIZATION SERIES Aged Out No longer eligible based on patient's age to complete this topic Hepatitis B Aged Out No longer eligi ble based on patient's age to complete this topic MENINGOCOCCAL (MENACTRA/MENVEO) Aged Out No longer eligible based on patient's age to complete this topic documented as of this encounter Medical Devices Not on filedocumented as of this encounter Care Teams Business Planning Director Relationship Specialty Start Date End Date Sudhir Vines DO [address] [place] [address] PCP - General Family Medicine 09/07/15 documented as of this encounter
--- OUTSIDE RECORDS SUMMARY | 2023-12-28 15:16 | External Medical Summary | Summary of Care ---
Author Name Unknown Organization [facility] Address [address] [facility] [place] [address] Phone [phone] Care Team Providers Care Primary Counselor Name Role Phone Sudhir Vines DO Primary Care Provider [phone] Reason for Visit * Reason Onset Date Comments Appointment 07/31/2023 Encounter Details Date Type Department Care Team (Late st Contact Info) Description 07/31/2023 Telephone Family Practice [place] [address] [facility] [place] [address] Sudhir Vines DO [address] [facility] [place] [address] Appointment Allergies Active Allergy Reactions Criticality Noted Date Comments Pollen Other (Please comment) 07/08/2022 sneeze Sulfa Antibiotics 04/29/2000 Hives documented as of this encounter (statuses as of 10/13/2023) Medications Medication Sig Dispensed Refills Start Date [...] as of this encounter (statuses as of 10/13/2023) Active Problems Problem Noted Date Diagnosed Date [...] inactive term FAM HX-DIABETES MELLITUS 04/21/2005 FM [id number] DIS NEC 04/21/2005 documented as of this encounter (statuses as of 10/13/2023) Resolved Problems Problem Noted Date Diagnosed Date Resolved Date Cancer of cervix 10/02/2017 07/09/2021 Overview: 2003, cone, for microinvasive cancer,at [facility]. Nl paps since. 2018 Pap and HPV [...] IVC filter placed. Jasmin Soriano MD at [facility] 07/17/2014 IVC filter removed Positive RADHA (antinuclear antibody) 05/15/2013 06/20/2013 Acute bronchitis, complicated 04/22/2009 03/27/2014 NONE 01/20/2002 11/24/2012 documented as of this encounter (statuses as of 10/13/2023) Immunizations Name Administration Dates Next Due COVID-19 [...] encounter Miscellaneous Notes * Telephone Encounter - Lauren Diana OSA - 10/13/2023 3:34 PM EDT Letter sent TRANG Varma 10/13/2023 3:34 PM * Telephone Encounter - Kanwal Ramos OSA [...] 11:40 AM EST Office Visit Family Practice [facility] [address] [facility] [place] [address] Sudhir Vinse, DO [address] [facility] [place] [address] 02/12/2024 9:30 AM EST Imaging Radiology [address] [facility] [place] [address] 08/18/2024 10:30 AM EDT Office Visit Rheumatology [place] [address] [facility] [place] [address] Vikas Gordon PA-C [address] [facility] [place] [address] 09/02/2024 11:30 AM EDT Office Visit Gynecology/Obstetics [place] [address] [place] [phone] Flores Valdovinos PA-C [address] [place] [address] Scheduled Procedures Name Priority Associated Diagnoses Date/Ti me COLONOSCOPY FLEXIBLE PROXIMAL DIAGNOSTIC Recall History of colon polyps Health Maintenance Due Date Last Done Comments HIV Screening 09/21/1975 Hepatitis C Screening 1978 Cologuard 2005 Fecal Occult Blood Test 2005 Sigmoidoscopy 2005 Depression Screening 06/15/2020 06/16/2019 Colonoscopy 07/13/2022 07/13/2017, 05/2017, 11/24/2011, Additional history exists Colorectal Cancer Screening 07/13/2022 COVID-19 Vaccine (3 - 2022- season) 2023 07/05/2020, 06/14/2020 Influenza Vaccine (FLU [...] filedocumented as of this encounter Care Teams Primary Counselor Relationship Specialty Start Date End Date Sudhir Vines DO [address] [place], [place] [address] [address] PCP - General Family Medicine 09/07/15 documented as of this encounter
--- OUTSIDE RECORDS SUMMARY | 2023-12-28 15:16 | External Medical Summary | Summary of Care ---
Author Name Unknown Organization [facility] Address [address] [facility] [place] [address] Phone [phone] Care Team Providers Care Blood Coordinator Name Role Phone Sudhir Vines DO Primary Care Provider [phone] Reason for Visit * Reason Onset Date Comments Appointment 07/31/2023 Encounter Details Date Type Department Care Team (Late st Contact Info) Description 07/31/2023 Telephone Family Practice [place] 200 [facility] [place] [address] Sudhir Vines DO 200 [facility] [place] [address] Appointment Allergies Active Allergy Reactions Criticality Noted Date Comments Pollen Other (Please comment) 07/08/2022 sneeze Sulfa Antibiotics 04/29/2000 Hives documented as of this encounter (statuses as of 10/01/2023) Medications Medication Sig Dispensed Refills Start Date [...] as of this encounter (statuses as of 10/01/2023) Active Problems Problem Noted Date Diagnosed Date [...] inactive term FAM HX-DIABETES MELLITUS 04/21/2005 FM [id number] DIS NEC 04/21/2005 documented as of this encounter (statuses as of 10/01/2023) Resolved Problems Problem Noted Date Diagnosed Date Resolved Date Cancer of cervix 10/02/2017 07/09/2021 Overview: 2003, cone, for microinvasive [place] [facility] Nl paps since. 2018 Pap and HPV [...] filter placed. Jasmin Soriano MD at [facility] 07/17/2014 IVC filter removed Positive RADHA (antinuclear antibody) 05/15/2013 06/20/2013 Acute bronchitis, complicated 04/22/2009 03/27/2014 NONE 01/20/2002 11/24/2012 documented as of this encounter (statuses as of 10/01/2023) Immunizations Name Administration Dates Next Due COVID-19 [...] 02/01/2024 11:40 AM EST [facility] [place] [address] [place], [place] [id number] Sudhir Vines, DO [address] [place] [address] 02/12/2024 9:30 AM EST Imaging Radiology [facility] [place] [address] [place] [address] 08/18/2024 10:30 AM EDT Office Visit [facility]umatology [facility] [place] [address] Vikas Gordon PAZhaoC [address] [facility] [place] [address] 09/02/2024 11:30 AM EDT Office Visit Gynecology/Obstetics [place] [address] [place] [phone] Flores Valdovinos PAZhaoC [address] [place], [place] [phone] Scheduled Procedures Name Priority Associated Diagnoses Date/Ti [...] filedocumented as of this encounter Care Teams Blood Coordinator Relationship Specialty Start Date End Date Sudhir Vines DO [address] [place] [address] PCP - General Family Medicine 09/07/15 documented as of this encounter
--- OUTSIDE RECORDS SUMMARY | 2023-12-28 15:16 | External Medical Summary | Summary of Care ---
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 Encounter Details Date Type Department Care Team (Latest Contact Info) Description 09/03/2023 3:30 PM EDT Office Visit Gynecology/Obstetics [place] [address] [place] [address] Flores Valdovinos PA-C [address] [place] [address] Encounter for gynecological examination without abnormal finding*; History of abnormal cervical Pap smear; Encounter for screening mammogram for malignant neoplasm of breast Allergies Active Allergy Reactions Criticality Noted Date Comments Pollen Other (Please comment) 07/08/2022 sneeze Sulfa Antibiotics 04/29/2000 Hives documented as of this encounter (statuses as of 09/05/2023) Medications Medication Sig Dispensed Refills Start Date [...] as of this encounter (statuses as of 09/05/2023) Active Problems Problem Noted Date Diagnosed Date [...] inactive term FAM HX-DIABETES MELLITUS 04/21/2005 FM [id number] DIS NEC 04/21/2005 documented as of this encounter (statuses as of 09/05/2023) Resolved Problems Problem Noted Date Diagnosed Date Resolved Date Cancer of cervix 10/02/2017 07/09/2021 Overview: 2003, cone, for microinvasive cancer,at [facility]. Nl paps since. 2018 Pap and [...] TPA, thrombectomy and IVC filter placed. Jasmin Soirano MD at [facility] 07/17/2014 IVC filter removed Positive RADHA (antinuclear antibody) 05/15/2013 06/20/2013 Acute bronchitis, complicated 04/22/2009 03/27/2014 NONE 01/20/2002 11/24/2012 documented as of this encounter (statuses as of 09/05/2023) Immunizations Name Administration Dates Next Due COVID-19 [...] on file documented as of this encounter Last Filed Vital Signs Vital Sign Reading Time Taken Comments Blood Pressure 136/84 09/03/2023 3:39 PM EDT Pulse - - Temperature - - Respiratory Rate - - Oxygen Saturation - - Inhaled Oxygen Concentration - - Weight 70.6 kg (155 lb 9.6 oz) 09/03/2023 3:39 P M EDT Height - - Body Mass Index 25.74 07/31/2023 9:53 AM EDT documented in this encounter Patient Instructions * Patient Instructions* Flores Valdovinos PA-C - 09/03/2023 3:47 PM EDT Replens over the counter for vaginal dryness. documented in this encounter Progress Notes * Flores Valdovinos PA-C - 09/03/2023 3:45 PM EDT Chief Complaint: The patient is a 62 year old G2 female here for her annual exam. History of Present Illness: Menstrual Cycle History: Patient stopped with periods about 10 years ago. Patient denies postmenopausal vaginal bleeding. Patient has vaginal dryness due to menopause and Sjorgren's syndrome. Patient has tried coconut oil. Patient declines vaginal estrogen. Sexually active: Sometimes - patient reports uncomfortable with vaginal dryness. Last pap smear: Normal, HPV negative on 02/28/2020. Normal, HPV negative in 02/2019. Normal, HPV negative in 09/2017. Insufficient pap smear in 2016. Normal pap smear in 2011. History of abnormal pap smears: Yes - cone biopsy in 2002. 2007 - endometrial biopsy was normal - completed due to endometrial cells on pap smear. Patient declines STD testing. Last mammogram: 02/10/2023 - normal Last colonoscopy: 07/2017 - told to return in 5 years. Patient has a referral placed for next colonoscopy. Patient feels safe in her home. Tobacco use: No Alcohol use: No Drug use: No Has a primary care provider: Yes Medications: Current Outpatient Medications Medication Sig Dispense Refill Cyanocobalamin (VITAMIN B-12) 1000 MCG Tablet 1 daily folic acid 1 MG Tablet 1 daily Cholecalciferol (VITAMIN D) 1000 UNITS Tablet 5 Tablets. Escitalopram Oxalate 10 MG Oral Tablet (Lexapro) Take 1 Tablet by mouth daily. 30 Tablet 5 No current facility-administered medications for this visit. Allergies: Review of patient's allergies indicates: Allergen Reactions Pollen Other (Please comment) sneeze Sulfa Antibiotics Hives Patient Active Problem List Diagnosis Family history of other cardiovascular diseases FAM HX-DIABETES MELLITUS FM [id number] DIS NEC Hypercholesterolemia Overweight (BMI 25.0-29.9) Sjogren's syndrome (HCC) Vitamin D deficiency LBBB (left bundle branch block) Adenomatous polyp of colon History of DVT of lower extremity LUKE (generalized anxiety disorder) Leukocytoclastic vasculitis (HCC) History of cervical cancer Past Medical History: Diagnosis Date Benign neoplasm of colon 11/24/2011 COLONOSCOPY FLEXIBLE PROXIMAL DIAGNOSTIC performed by Erasto Kilgore MD at [place] [facility] shows adenomatous polyp repeat in 3 years Cervical cancer (HCC) 2002 cone, microinvasive, nl paps since DVT (deep venous thrombosis) (HCC) 05/03/2014 04/12/2014 LLE INFORMATION pain from overbite INFORMATION high chol LBBB (left bundle branch block) 04/12/2014 Sjoegren syndrome Warfarin anticoagulation 04/12/2014 04/12/2014 extensive DVT LLE, TPA, thrombectomy and IVC filter placed. Jasmin Soriano MD at [facility] 07/17/2014 IVC filter removed Past Surgical History: Procedure Laterality Date ARTERIAL CATH EXCHANGE DURING THROMBOLYSIS 04/2014 COLONOSCOPY, DIAGNOSTIC (RECTUM) 11/24/2011 adenomatous polyp repeat in 3 years COLONOSCOPY, DIAGNOSTIC (RECTUM) 07/13/2017 diverticulosis, repeat 5 yrs/COLONOSCOPY FLEXIBLE PROXIMAL DIAGNOSTIC performed by Tommy Castorena MD at ENDOSCOPY [facility] FRACTURE NOS 6.26.01 left proximal humerus fracture ORIF MAMMOGRAM - BILATERAL 10/04/03 birad code 1/janina MAMMOGRAM - BILATERAL 10/18/04 Birad code 2 MAMMOGRAM - BILATERAL 11/04/05 birad code 2 MAMMOGRAM SCREENING-BILATERAL 11/05/06 birad 2 RECONST LWR JAW W/FIXATION tmj REMOVE CERVIX CONE W/LOOP ELECTRODE 2002 Family History Problem Relation Name Age of Onset Endocrine Disorder Mother hypercholesterolemia Lupus Mother Leukemia Mother Hypertension Father Heart attack Father 40s Alzheimer's disease Father Diabetes Father Osteoporosis Sister No Known Problems Brother No Known Problems Grandmother (Maternal) No Known Problems Grandfather (Maternal) Breast Cancer Grandmother (Paternal) 75 Cervical Cancer Grandmother (Paternal) Lung cancer Grandfather (Paternal) Asthma Daughter Asthma Son Denies any family history of ovarian or uterine cancer. Review of Systems: Constitutional ROS: No fevers, sweats, or chills and Positive for fatigue and occasionally weakness. Neck ROS: No lumps or masses and No swollen glands Pulmonary ROS: No shortness of breath and No recent change in breathing Cardiovascular ROS: No chest pain and No palpitations Gastrointestinal ROS: No abdominal pain, No change in bowel habits, No blood in stools or black tarry stools, and No abdominal bloating or early satiety Breast ROS: No new breast lumps or masses, No severe breast pain, No nipple discharge, and No recent change in shape/color Genito-Urinary Female ROS: No dysuria, No incontinence, No urgency, and No vaginal itching, No vaginal odor. Psychiatric ROS: Patient reports that mood is stable. OBJECTIVE: BP 136/84 | Wt 70.6 kg (155 lb 9.6 oz) | LMP 05/21/2012 | BMI 25.74 kg/m | BSA 1.8 m General: awake, alert, and oriented x 3, normal affect, no acute distress Skin: color, texture, turgor normal Head: normocephalic, atraumatic Lungs: no difficulty breathing Abdomen: soft, non-tender, non-distended, no masses Extremities: no edema Neuro: no focal motor/sensory deficits Breasts: no skin changes, no nipple retraction or dimpling, no nipple discharge or bleeding, no axillary or supraclavicular lymphadenopathy, normal to palpation without dominant masses External Genitalia/Vulva: anatomy is normal aside from atrophy, no significant redness of labia, nodischarge on vulvar tissues, ulcers are absent, no condylomatous lesions Vagina: vaginal tissues are not inflamed, normal color and texture, no abnormal vaginal discharge. Atrophic. Cervix: without lesions, no cervicitis, no discharge from os, no cervical motion tenderness. Pap smear with HPV cotesting done today. Uterus: normal size, normal shape, mobile, non-tender. Adnexa: normal size and shape bilaterally and non-tender bilaterally Negative Cleaner Documentation Patient offered pierogi maker and declined. ASSESSMENT/PLAN: Encounter for gynecological examination without abnormal finding (Primary) Counseled patient on ACOG recommendations regarding pap smears. Counseled patient that she should return to the office for annual exam, including pelvic exam every year. Pap smear + HPV cotesting done today. Patient will be contacted with results. Last mammogram: 02/10/2023 - normal. Last colonoscopy: 07/2017 - told to return in 5 years. Patient has a referral placed for next colonoscopy. Has a primary care provider. Advised patient to try Replens over the counter for vaginal dryness. Patient declines vaginal estrogen. History of abnormal cervical Pap smear History of cone biopsy due to extensive abnormal pap smear history. 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 Encounter for screening mammogram for malignant neoplasm of breast - MAMMOGRAM SCREENING LATA BILATERAL; Future; Expected date: 02/12/2024 Advised yearly screening mammogram. RTO in 1 year for annual exam appointment or sooner if she has any concerns. JOHANNY Torres DO documented in this encounter Nursing Notes * Christi Ivey LPN - 09/03/2023 3:39 PM EDT Patient here for annual No concerns documented in this encounter Plan of Treatment Upcoming Encounters Date Type Department Care Team (Late st Contact Info) Description 02/01/2024 11:40 AM EST Office Visit [facility] 200 [facility] [place] [address] Sudhir Vines DO 200 [facility] [place] [address] 02/12/2024 9:30 AM EST Imaging Radiology [address] 132 [facility] [place] [address] 08/18/2024 10:30 AM EDT Office Visit Rheumatology [facility] [address] [facility] [place] [address] Vikas Gordon PA-C [address] [facility] [place] [address] 09/02/2024 11:30 AM EDT Office Visit Gynecology/Obstetics [place] [address] [place] [address] Flores Valdovinos PA-C [address] [place] [address] Pending Results Name Type Priority Associated Diagnoses Date /Time 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 Pathology Routine Malignant neoplasm of cervix, unspecified site (HCC) 09/03/2023 3:54 PM EDT HUMAN PAPILLOMA VIRUS, PROBE Lab Routine History of abnormal cervical Pap smear 09/03/2023 3:54 PM EDT Scheduled Orders Name Type Priority Associated Diagnoses Orde r Schedule MAMMOGRAM SCREENING LATA BILATERAL Medical Imaging Routine Encounter for screening mammogram for malignant neoplasm of breast Expected: 02/12/2024, Expires: 10/03/2024 Scheduled Procedures Name Priority Associated Diagnoses Date/Ti [...] COVID-19 Vaccine ( season) 2022 07/05/2020, 06/14/2020 Cervical Cancer Screening 02/27/2023 Pap Smear 02/27/2023 02/28/2020, 02/09, 10/02/2017, Additional history exists Influenza Vaccine (FLU shot) (#1) 2023 11/28/2020, [...] as of this encounter Visit Diagnoses Diagnosis Encounter for gynecological examination without abnormal finding- Primary Routine gynecological examination History of abnormal cervical Pap smear Personal history of other genital system and obstetric disorders Encounter for screening mammogram for malignant neoplasm of breast Other screening mammogram documented in this encounter Care Teams Wire Bender Hand Relationship Specialty Start Date End Date Sudhir Vines DO [address] [place] [address] PCP - General Family Medicine 09/07/15 documented as of this encounter"
--- OUTSIDE RECORDS SUMMARY | 2023-12-28 15:17 | External Medical Summary | Summary of Care ---
Author Name Unknown Organization [facility] Address [address] [facility] [place] [address] Phone [phone] Care Team Providers Care Field Enumerator Name Role Phone Sudhir Vines DO Primary Care Provider [phone] Reason for Referral * Evaluate & Treat - Unlimited Visits (Within 30 days (routine)) - Authorized Specialty Diagnoses / Procedures Referred By Vishnu kramer Referred To Contact Rheumatology Diagnoses Sjogren's syndrome, with unspecified organ involvement (HCC) Sudhir Vines DO [address] [place] [address] Referral ID Status Reason Start Date Expiration Date Visits Requested Visits Authorized [id number] Authorized Specialty Services Required 07/31/[phone] Question Answer Referral Priority Within 30 days (routine) Where should this appointment be scheduled? [facility] Reason for referral: Inflammatory arthritis/Autoimmune or Connective Tissue Diseases * Ancillary Services (Within 30 days (routine)) - Authorized Specialty Diagnoses / Procedures Referred By Vishnu kramer Referred To Contact Gastroenterology Diagnoses Special screening for malignant neoplasms, colon Routine medical exam Sudhir Vines DO [address] [place] [place] [address] Referral ID Status Reason Start Date Expiration Date Visits Requested Visits Authorized [id number] Authorized Ancillary Services Required 07/31/[phone] Question Answer Referral Priority Within 30 days (routine) Where should this appointment be scheduled? [facility] Comments ALERT: Do not order for pediatric patients (18 years or younger). Cancel off screen and order PEDS GASTROENTEROLOGY CONSULT (Type: 1 visit only-Evaluate and Treat) The following Pt. Instructions are available: - Gastro Colonoscopy Prep Instructions [[id number]] - Gastro Colonoscopy Prep Instructions (Uzbek Version) [[id number]] Go to the Pt. Instructions section within the Visit Navigator to access. Colonoscopy ASGE Guidelines: Postadenoma resection: 1-2 tubular adenomas of less than 1 cm (5 yr intervals) ADDITIONAL INFORMATION 1. Is the patient on Coumadin? No 2. Is the patient on Pradaxa? No Reason for Visit * Reason Comments Follow Up Patient is here for a follow-up and denies any new concerns. Medication Administration Patient would like to discuss current medications Encounter Details Date Type Department Care Team (Late st Contact Info) Description 07/31/2023 10:00 AM EDT Office Visit [facility] [address] [facility] [place] [address] Sudhir Vines DO [address] [facility] [place] [address] Routine medical exam*; Special screening for malignant neoplasms, colon; Sjogren's syndrome, with unspecified organ involvement (HCC) Allergies Active Allergy Reactions Criticality Noted Date Comments Pollen Other (Please comment) 07/08/2022 sneeze Sulfa Antibiotics 04/29/2000 Hives documented as of this encounter (statuses as of 07/31/2023) Medications Medication Sig Dispensed Refills Start Date End Date Status Cyanocobalamin (VITAMIN B-12) 1000 MCG Tablet 1 daily Active folic acid 1 MG Tablet 1 daily Active Cholecalciferol (VITAMIN D) 1000 UNITS Tablet 5 Tablets. Active Escitalopram Oxalate 10 MG Oral Tablet (Lexapro)Indicati ons:LUKE (generalized anxiety disorder) Take 1 Tablet by mouth daily. 30 Tablet 5 05/28/2023 Active Probiotic 250 MG Oral Capsule Take by mouth. 07/31/2023 Discontinued( Medication List Clean Up) documented as of this encounter (statuses as of 07/31/2023) Active Problems Problem Noted Date Diagnosed Date [...] inactive term FAM HX-DIABETES MELLITUS 04/21/2005 FM [id number] DIS NEC 04/21/2005 documented as of this encounter (statuses as of 07/31/2023) Resolved Problems Problem Noted Date Diagnosed Date Resolved Date Cancer of cervix 10/02/2017 07/09/2021 Overview: 2003 cone, for microinvasive cancer,at [facility] [place]. Nl paps since. 2018 Pap and HPV [...] IVC filter placed. Jasmin Soriano MD at [facility] 07/17/2014 IVC filter removed Positive RADHA (antinuclear antibody) 05/15/2013 06/20/2013 Acute bronchitis, complicated 04/22/2009 03/27/2014 NONE 01/20/2002 11/24/2012 documented as of this encounter (statuses as of 07/31/2023) Immunizations Name Administration Dates Next Due COVID-19 [...] Reading Time Taken Comments Blood Pressure 136/84 07/31/2023 9:53 AM EDT Pulse 78 07/31/2023 9:53 AM EDT Temperature 36.2 C (97.1 F) 07/31/2023 9:53 AM ED T Respiratory Rate 16 07/31/2023 9:53 AM EDT Oxygen Saturation 99% 07/31/2023 9:53 AM EDT Inhaled Oxygen Concentration - - Weight 69 kg (152 lb 3.2 oz) 07/31/2023 9:53 AM EDT Height 165.6 cm (5' 5.2") 07/31/2023 9:53 AM EDT Body Mass Index 25.17 07/31/2023 9:53 AM EDT documented in this encounter Progress Notes * Sudhir Vines, DO - 07/31/2023 10:08 AM EDT Subjective: Tasha Smith is a 62 year old female. Chief Complaint Patient presents with Follow Up Patient is here for a follow-up and denies any new concerns. Medication Administration Patient would like to discuss current medications HPI: Pt here for physical. Very busy with work - 70 hours or more per week. Planning to retire next September. Mood has been good with it. Sometimes frustrated. She feels like Lexapro helps. No side effects. PMHx, PSHx, SHx, FHx, Medications, and Allergies fully reviewed Meeting her granddaughter tomorrow. Colonoscopy discussed and open to it. Diet discussed. Maybe some more carbs over time. Exercise discussed. Due for follow-up with rheumatology. Scheduled for pap already. Patient Active Problem List Diagnosis Family history of other cardiovascular diseases FAM HX-DIABETES MELLITUS FM [id number] DIS NEC Hypercholesterolemia Overweight (BMI 25.0-29.9) Sjogren's syndrome (HCC) Vitamin D deficiency LBBB (left bundle branch block) Adenomatous polyp of colon History of DVT of lower extremity LUKE (generalized anxiety disorder) Leukocytoclastic vasculitis (HCC) History of cervical cancer Current Outpatient Medications Medication Sig Dispense Refill Cyanocobalamin (VITAMIN B-12) 1000 MCG Tablet 1 daily folic acid 1 MG Tablet 1 daily Cholecalciferol (VITAMIN D) 1000 UNITS Tablet 5 Tablets. Escitalopram Oxalate 10 MG Oral Tablet (Lexapro) Take 1 Tablet by mouth daily. 30 Tablet 5 No current facility-administered medications for this visit. Review of patient's allergies indicates: Allergen Reactions Pollen Other (Please comment) sneeze Sulfa Antibiotics Hives OBJECTIVE: BP 136/84 | Pulse 78 | Temp 36.2 C (97.1 F) (Tympanic) | Resp 16 | Ht 1.656 m (5' 5.2") | Wt 69kg (152 lb 3.2 oz) | LMP 05/21/2012 | SpO2 99% | BMI 25.17 kg/m | BSA 1.78 m Estimated body mass index is 25.17 kg/m as calculated from the following: Height as of this encounter: 1.656 m (5' 5.2"). Weight as of this encounter: 69 kg (152 lb 3.2 oz). BP Readings from Last 3 Encounters: 07/31/23 136/84 01/14/23 167/93 12/16/22 154/86 Wt Readings from Last 3 Encounters: 07/31/23 69 kg (152 lb 3.2 oz) 01/14/23 68.6 kg (151 lb 4.8 oz) 12/16/22 68 kg (150 lb) ROS: General: No change in weight, No weakness, No fatigue and No fevers, sweats, or chills Head: No significant headache and No recent significant head injury Eyes: No recent significant change in vision, No eye pain, redness, discharge, or excessive tearing, No diplopia and No h/o cataracts or glaucoma Ears: No recent change in hearing, No tinnitus or vertigo, No ear pain and No ear discharge Nose: No h/o frequent colds or sinusitis, No nasal stuffiness, No h/o hay fever and No significant epistaxis Throat/Oropharynx: No teeth or gum problems, No bleeding gums, No tongue complaints, No sore throatand No recent change in voice or hoarseness Neck: No complaint of lumps in neck, No swollen glands, No recent swelling in thyroid area and No significant pain in neck Breast: No new breast lumps, No severe breast pain, No nipple discharge, No recent change in shape/contor and Patient does perform monthly self breast exam Respiratory: No cough, sputum, or hemoptysis, No wheezing, No shortness of breath and No recent change in breathing Cardiac: No chest pain, No shortness of breath, No dyspnea on exertion, No orthopnea, No paroxysmalnocturnal dyspnea, No edema, No palpitations and No syncope Gastrointestinal: No dysphagia, No significant heartburn, No significant change in appetite, No nausea, vomiting, diarrhea, or constipation, No hematemesis, No blood in stools or black tarry stools, No abdominal bloating or early satiety and No abdominal pain Urinary: No urinary frequency, No dysuria, No hematuria, No urinary urgency, No polyuria, No nocturia, No incontinence, No hesitancy and No sensation of incomplete voiding Musculoskeletal: chronic aches and pains Hematologic: No anemia, No easy bruising or abnormal bleeding and No history of transfusion Neurologic: No fainting or blackouts, No seizures, No paralysis or focal weakness, No numbness or tingling, No tremors and No significant problems with memory PHYSICAL EXAM: General: alert, healthy and no distress Head: Normocephalic, No masses, lesions, tenderness or abnormalities Ears: External ears normal, Canals clear, TM's Normal Nose: no mucosal erythema, no mucosal edema, no purulent discharge Oropharynx: no exudate, no erythema, lips, buccal mucosa, and tongue normal and mucous membranes are moist Neck: supple, no adenopathy, no bruits, thyroid normal size, non-tender, without nodularity Heart: regular rate & rhythm, no murmurs and no gallops Lungs: chest symmetric with normal AP diameter, no chest deformities noted, no chest wall tenderness, lungs clear to auscultation Abdomen: abdomen soft, non-tender, normal bowel sounds and no masses or organomegaly Extremities: less than 2 second capillary refill, no joint deformities, effusion, or inflammation ASSESSMENT/Plan Routine medical exam (Primary) - COLONOSCOPY, GI REFERRAL OP Special screening for malignant neoplasms, colon - COLONOSCOPY, GI REFERRAL OP Sjogren's syndrome, with unspecified organ involvement (HCC) - RHEUMATOLOGY REFERRAL OP Dental and sun care discussed along with weight. Overall in good health. Continue Lexapro and re-evaluate after penitentiary. The above was discussed and understanding was expressed. Sudhir Vines DO documented in this encounter Nursing Notes * Jason Martin MED ASSIST - 07/31/2023 9:53 AM EDT Chief Complaint Patient presents with Follow Up Patient is here for a follow-up and denies any new concerns. Medication Administration Patient would like to discuss current medications documented in this encounter Plan of Treatment Upcoming Encounters Date Type Department Care Team (Late st Contact Info) Description 08/04/2023 2:30 PM EDT Office Visit Rheumatology [facility] [address] [place] [address] Vikas Gordon PA-C [address] [place] [address] 09/03/2023 3:30 PM EDT Office Visit Gynecology/Obstetics [place] [address] [place] [id number] Flores Valdovinos PA-C [address] [place] [address] 02/01/2024 11:40 AM EST Office Visit Family Practice [address] [place] [address] [facility] [place] [address] Sudhir Vines DO [address] [facility] [place] [address] Scheduled Procedures Name Priority Associated Diagnoses Date/Ti me COLONOSCOPY FLEXIBLE PROXIMAL DIAGNOSTIC Recall History of colon polyps Scheduled Referrals Name Type Priority Associated Diagnoses Orde r Schedule COLONOSCOPY, GI REFERRAL OP Referral Within 30 days (routine) Special screening for malignant neoplasms, colon Routine medical exam Ordered: 07/31/2023 RHEUMATOLOGY REFERRAL OP Referral Within 30 days (routine) Sjogren's syndrome, with unspecified organ involvement (HCC) Ordered: 07/31/2023 Health Maintenance Due Date Last Done Comments [...] as of this encounter Visit Diagnoses Diagnosis Routine medical exam- Primary Routine general medical examination at a health care facility Special screening for malignant neoplasms, colon Sjogren's syndrome, with unspecified organ involvement (HCC) documented in this encounter Care Teams Field Enumerator Relationship Specialty Start Date End Date Sudhir Vines DO [address] [place] [address] PCP - General Family Medicine 09/07/15 documented as of this encounter
--- OUTSIDE RECORDS SUMMARY | 2023-12-28 15:17 | External Medical Summary | Summary of Care ---
Author Name Unknown Organization [facility] Address [address] [facility] [place] [address] Phone [phone] Care Team Providers Care It Infrastructure Consultant Name Role Phone Sudhir Vines DO Primary Care Provider [phone] Reason for Visit * Reason Comments Rheum Follow Up Sjogren's * Evaluate & Treat - Unlimited Visits (Within 30 days (routine)) - Authorized Specialty Diagnoses / Procedures Referred By Vishnu kramer Referred To Contact Rheumatology Diagnoses Sjogren's syndrome, with unspecified organ involvement (HCC) Sudhir Vines DO [address] [place] [address] Referral ID Status Reason Start Date Expiration Date Visits Requested Visits Authorized [id number] Authorized Specialty Services Required 07/31/[phone] Encounter Details Date Type Department Care Team (Latest Contact Info) Description 08/04/2023 2:30 PM EDT Office Visit Rheumatology [facility] [address] [place] [address] Vikas Gordon PA-C [address] [place] [address] Leukocytoclastic vasculitis (HCC)*; Sjogren's syndrome, with unspecified organ involvement (HCC); Special screening examination for viral disease; Need for hepatitis C screening test Allergies Active Allergy Reactions Criticality Noted Date Comments Pollen Other (Please comment) 07/08/2022 sneeze Sulfa Antibiotics 04/29/2000 Hives documented as of this encounter (statuses as of 08/04/2023) Medications Medication Sig Dispensed Refills Start Date [...] as of this encounter (statuses as of 08/04/2023) Active Problems Problem Noted Date Diagnosed Date [...] inactive term FAM HX-DIABETES MELLITUS 04/21/2005 FM [id number] DIS NEC 04/21/2005 documented as of this encounter (statuses as of 08/04/2023) Resolved Problems Problem Noted Date Diagnosed Date Resolved Date Cancer of cervix 10/02/2017 07/09/2021 Overview: 2003, cone, for microinvasive cancer,at [facility] [place]. Nl paps since. 2017 Pap and HPV negative. History of loop [...] IVC filter placed. Jasmin Soriano MD at [facility] 07/17/2014 IVC filter removed Positive RADHA (antinuclear antibody) 05/15/2013 06/20/2013 Acute bronchitis, complicated 04/22/2009 03/27/2014 NONE 01/20/2002 11/24/2012 documented as of this encounter (statuses as of 08/04/2023) Immunizations Name Administration Dates Next Due COVID-19 [...] Date Smoking Tobacco: Never Smokeless Tobacco: Never Tobacco Cessation:Counseling Given: Not Answered Alcohol Use Standard Drinks/Week Comments No 0 [...] Sign Reading Time Taken Comments Blood Pressure 134/72 08/04/2023 2:23 PM EDT Pulse - - Temperature 36.5 C (97.7 F) 08/04/2023 2:23 PM ED T Respiratory Rate - - Oxygen Saturation - - Inhaled Oxygen Concentration - - Weight - - Height - - Body Mass Index - - documented in this encounter Progress Notes * Vikas Gordon PA-C - 08/04/2023 2:24 PM EDT Subjective: Patient seen today for further follow up evaluation of Sjogren's, LCV. She is using eye drops and using mouthwash. At night she uses Xylamelts. She has hx of LCV. As long as she uses comrpession she does not have much issue. Records reviewed and no HIV/Hep C rule out. Denies fever, chills. All other review of systems reviewed and negative other than mentioned in HPI. Social History: Social History Tobacco Use Smoking status: Never Smokeless tobacco: Never Substance Use Topics Alcohol use: No Vaping/E-Cigarette Use Vaping/E-Cigarette Use Never User Vaping/E-Cigarette Substances Nicotine No Other No Flavoring No THC No Cannabidiol (CBD) No Vaping/E-Cigarette Devices Disposable No Pre-filled or Refillable Cartridge No Refillable Tank No Pre-filled Pod No Current Outpatient Medications Medication Sig Dispense Refill Cyanocobalamin (VITAMIN B-12) 1000 MCG Tablet 1 daily folic acid 1 MG Tablet 1 daily Cholecalciferol (VITAMIN D) 1000 UNITS Tablet 5 Tablets. Escitalopram Oxalate 10 MG Oral Tablet (Lexapro) Take 1 Tablet by mouth daily. 30 Tablet 5 No current facility-administered medications for this visit. Physical Exam: BP 134/72 | Temp 36.5 C (97.7 F) | LMP 05/21/2012 Latest Reference Range & Units 07/09/21 10:54 02/07/22 12:46 06/10/22 15:08 12/11/22 00:00 Triglycerides <=174 mg/dL 82 TRIGLYCERIDES-OUTSIDE LAB <150 MG/DL 91 (E) Cholesterol <200 mg/dL 285 (H) CHOL/HDL RATIO-OUTSIDE LAB <5.0 CALC 3.1 (E) CHOLESTEROL-Outside Lab <200 MG/DL 239 (H) (E) Non-HDL Cholesterol <=159 mg/dL 213 (H) HDL Cholesterol >49 mg/dL 72 HDL-OUTSIDE LAB >=50 MG/DL 76 (E) LDL Cholesterol <=129 mg/dL 197 (H) LDL (CALCULATED)-OUTSIDE LAB <100 MG/DL 143 (H) (E) Sodium 135 - 146 mmol/L 139 Potassium 3.5 - 5.1 mmol/L 4.0 POTASSIUM-OUTSIDE LAB 3.5 - 5.3 MMOL/L 3.6 (E) Chloride 98 - 107 mmol/L 105 CO2 22 - 32 mmol/L 22 BUN 6 - 20 mg/dL 16 Creatinine 0.5 - 1.0 mg/dL 0.5 - 1.0 mg/dL 0.9 0.8 CREATININE-OUTSIDE LAB 0.50 - 1.05 MG/DL 0.79 (E) Estimated Glomerular Filtration Rate >=60 mL/min >=60 mL/min 75 81 EGFR-OUTSIDE LAB >=60 ML/MIN 85 (E) Anion Gap 7 - 15 mmol/L 12 Glucose 70 - 120 mg/dL 97 GLUCOSE-OUTSIDE LAB 65 - 99 MG/DL 99 (E) Calcium 8.4 - 10.2 mg/dL 9.4 Protein 6.0 - 8.3 g/dL 8.2 Folic Acid >4.5 ng/mL >20.0 TSH 0.27 - 4.20 uIU/mL 3.18 TSH - OUTSIDE LAB 0.40 - 4.50 MIU/L 3.22 (E) TSH WITH FREE T4 IF INDICATED Rpt Rpt WBC 4.00 - 10.80 K/uL 2.75 (L) RBC 3.85 - 5.15 M/uL 3.94 HGB 11.7 - 15.5 G/DL 11.1 (L) 11.8 (E) HCT 36.0 - 45.2 % 35.9 (L) MCV 81.5 - 97.5 fL 91.1 MCH 27.0 - 34.0 pg 28.2 MCHC 32.0 - 36.0 g/dL 30.9 (L) RDW 11.5 - 15.5 % 14.0 PLT 140 - 400 K/uL 162 MPV 6.6 - 11.1 fL 12.0 (H) ANEMIA CBC Rpt ! Rpt Absolute Neutrophils 1.80 - 7.70 K/uL 2.04 Absolute Lymphocytes 1.00 - 4.80 K/uL 0.52 (L) Absolute Monocytes 0.00 - 1.10 K/uL 0.11 Absolute Eosinophils 0.00 - 0.70 K/uL 0.08 IRON SCREEN, INCLUDING TIBC Rpt ! Iron 33 - 151 ug/dL 62 Iron Binding Capacity 250 - 425 ug/dL 246 (L) Transferrin Saturation Percent 15 - 55 % 25 Ferritin 13 - 150 ng/mL 373 (H) Vitamin B12 232-1,245 pg/mL 1,286 (H) Immature Reticuloctye Fraction 2.5 - 20.6 % 6.9 Reticulocyte Hemoglobin 29.7 - 37.4 pg 33.1 Absolute Reticulocyte 31.3 - 100.1 K/uL 45.7 Reticulocyte Percent 0.80 - 1.90 % 1.16 Albumin 3.8 - 5.0 g/dL 4.5 AST 10 - 35 U/L 20 ALT 10 - 35 U/L 14 Alkaline Phosphatase 35 - 130 U/L 67 Bilirubin, Total <=1.2 mg/dL 0.3 MAMMOGRAM SCREENING LATA BILATERAL Rpt (H): Data is abnormally high (L): Data is abnormally low !: Data is abnormal (E): External lab result Rpt: View report in Results Review for more information Physical Exam Constitutional: General: She is not in acute distress. Appearance: Normal appearance. She is normal weight. She is not ill-appearing or toxic-appearing. HENT: Head: Normocephalic and atraumatic. Eyes: Extraocular Movements: Extraocular movements intact. Conjunctiva/sclera: Conjunctivae normal. Pupils: Pupils are equal, round, and reactive to light. Cardiovascular: Rate and Rhythm: Normal rate and regular rhythm. Heart sounds: Normal heart sounds. No murmur heard. No friction rub. No gallop. Pulmonary: Effort: Pulmonary effort is normal. Breath sounds: Normal breath sounds. No wheezing, rhonchi or rales. Abdominal: General: Bowel sounds are normal. There is no distension. Palpations: Abdomen is soft. There is no mass. Tenderness: There is no abdominal tenderness. There is no guarding or rebound. Musculoskeletal: General: No swelling. Normal range of motion. Right lower leg: No edema. Left lower leg: No edema. Skin: Findings: No rash. Neurological: Mental Status: She is alert. Assessment: 1. Leukocytoclastic vasculitis (HCC) Stable. Using compression. Recommend HIV/Hep C rule out. Agreeable. 2. Sjogren's syndrome, with unspecified organ involvement (HCC) Continue conservative management. 3. Special screening examination for viral disease - HIV ANTIGEN & ANTIBODY SCREEN W/ CONFIRMATION; Future 4. Need for hepatitis C screening test - HEPATITIS C ANTIBODY SCREEN WITH PROGRESSION TO HEPATITIS C RNA QUANTITATIVE; Future Vikas Gordon PA-C Department of Rheumatology documented in this encounter Nursing Notes * Alee Nguyễn LPN - 08/04/2023 2:24 PM EDT Chief Complaint Patient presents with Rheum Follow Up Sjogren's documented in this encounter Plan of Treatment Upcoming Encounters Date Type Department Care Team (Late st Contact Info) Description 09/03/2023 3:30 PM EDT Office Visit Gynecology/Obstetics [place] [address] [place] [address] Flores Valdovinos [facility] [place] [address] 02/01/2024 11:40 AM EST Office Visit Family Practice [facility] [place] [address] [place] [address] Sudhir Vines DO [address] [facility] [place] [address] 08/18/2024 10:30 AM EDT Office Visit Rheumatology [facility] [address] [place] [address] Vikas Gordon PA-C [address] [place] [address] Scheduled Orders Name Type Priority Associated Diagnoses Orde r Schedule HIV ANTIGEN & ANTIBODY SCREEN W/ CONFIRMATION Lab Routine Special screening examination for viral disease Expected: 08/04/2023, Expires: 08/03/2024 HEPATITIS C ANTIBODY SCREEN WITH PROGRESSION TO HEPATITIS C RNA QUANTITATIVE Lab Routine Need for hepatitis C screening test Expected: 08/04/2023 (Approximate), Expires: 09/02/2024 Scheduled Procedures Name Priority Associated Diagnoses Date/Ti [...] as of this encounter Visit Diagnoses Diagnosis Leukocytoclastic vasculitis (HCC)- Primary Other specified hypersensitivity angiitis Sjogren's syndrome, with unspecified organ involvement (HCC) Special screening examination for viral disease Special screening examination for unspecified viral disease Need for hepatitis C screening test Special screening examination for other specified viral diseases documented in this encounter Care Teams It Infrastructure Consultant Relationship Specialty Start Date End Date Sudhir Vines DO [address] [place] [address] PCP - General Family Medicine 09/07/15 documented as of this encounter"
[2023-12-28] MEDS: AMIODARONE / D5W 360 MG/200 ML BAG IV SCH (17:21)
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
[2023-12-28] MEDS: GADOBUTROL 65ML VIAL IV ONE (19:02)
--- NOTE | 2023-12-28 20:09 | Magnetic Resonance Report ---
Exam(s): MRI HEAD W/WO Contrast IV Amt: 7cc gadavist EXAM: MR Head Without and With Intravenous Contrast CLINICAL HISTORY: Reason for exam: stroke alert. TECHNIQUE: Magnetic resonance images of the head/brain without and with intravenous contrast in multiple planes. CONTRAST: Patient received 7cc gadavist of IV contrast COMPARISON: Head CT 12/28/2023 FINDINGS: Brain: Restricted diffusion within the right parietal lobe consistent with acute infarct. No hemorrhagic conversion or mass-effect. Very mild periventricular and subcortical T2/flair hyperintensities suggestive of chronic microvascular ischemic changes. Parenchymal atrophy. No abnormally enhancing lesion. Ventricles: Unremarkable. No ventriculomegaly. Bones/joints: Unremarkable. No acute fracture. Sinuses: Unremarkable as visualized. No acute sinusitis. Mastoid air cells: Unremarkable as visualized. No mastoid effusion. Orbits: Unremarkable as visualized. IMPRESSION: Restricted diffusion within the right parietal lobe consistent with acute infarct. No hemorrhagic conversion or mass-effect. Communications: Call Doctor Stroke Electronically signed by: Ian Glynn MD 12/28/23 20:08 PM
--- NOTE | 2023-12-28 20:21 | Communication Note ---
Date of Service: December 28, 2023 Notified by [facility] of abnormal brain MRI result Restricted diffusion within the right parietal lobe consistent with acute infarct. No hemorrhagic conversion or mass-effect. AP Acute CVA [facility] [place] neurologist on-call (Dr. John Bailey) contacted for input regarding contemplated IV anticoagulation for thromboembolic prophylaxis for likely embolic stroke given history of paroxysmal atrial flutter after discussion with Dr. Flores of Cardiology.. Dr. Bailey recommends holding off on IV anticoagulation for now for acute stroke.. Daytime consulting neurologist (Dr. Alex Eller) to give further recommendations regarding timing of anticoagulation initiation as per Dr. Bailey.
[2023-12-28] MEDS ORDERED: HEPARIN SODIUM/DEXTROSE 25,000 UNITS/500 ML BAG IV SCH (20:45)
[2023-12-28] MEDS: MAGNESIUM SULFATE / D5W 1 GM/100 ML BAG IV ONE (21:30)
[2023-12-28] MEDS: Heparin IV Adult Wt-Based Low-Dose *NO* INITIAL Bolus Protocol IV STA (21:44)
--- NOTE | 2023-12-28 22:04 | Electrocardiogram Report ---
Test Reason : Blood Pressure : */* mmHG Vent. Rate : 93 BPM Atrial Rate : 93 BPM P-R Int : 140 ms QRS Dur : 126 ms QT Int : 378 ms P-R-T Axes : 77 6 -57 degrees QTcB Int : 469 ms Normal sinus rhythm Possible Left atrial enlargement Left bundle branch block Abnormal ECG When compared with ECG of 19-Apr-2014 05:18, Left bundle branch block has replaced Non-specific intra-ventricular conduction block Confirmed by Richard Deshpande ([id number]) on 12/28/2023 10:03:59 PM Referred By: REFERRED SELF Confirmed By: Richard Deshpande
[2023-12-29] MEDS: POTASSIUM CHLORIDE CRTAB 20 MEQ TABCR PO STA (06:58)
[2023-12-29] MEDS: METOPROLOL TARTRATE 1 MG/ML VIAL IV STA (06:58)
[2023-12-29] MEDS: DIGOXIN 250 MCG in SYRINGE 9 ML IV STA (07:34)
[2023-12-29 07:54] LABS: Basophils # (auto) 0.02 K/uL (0.00-0.20); Basophils % (auto) 0.6 %; Eosinophils # (auto) 0.02 K/uL (0.00-0.50); Eosinophils % (auto) 0.6 %; Hematocrit (blood only) 31.1 % (37.0-47.0); Hemoglobin 10.4 g/dl (12.0-16.0); Immature Granulocytes # (auto) 0.01 K/uL (0.01-0.20); Immature Granulocytes % (auto) 0.3 %; Lymphocytes # (auto) 0.81 K/uL (1.20-3.40); Lymphocytes % (auto) 22.4 %; Mean Corpuscular Hemoglobin 28.9 pg (25.0-34.0); Mean Corpuscular Hgb Conc 33.4 g/dL (32.0-36.0); Mean Corpuscular Volume 86.4 fL (80.0-100.0); Mean Platelet Volume 10.3 fL (9.4-12.4); Monocytes # (auto) 0.13 K/uL (0.11-0.59); Monocytes % (auto) 3.6 %; Neutrophils # (auto) 2.62 K/uL (1.40-6.50); Neutrophils % (auto) 72.5 %; Platelet Count 207 K/uL (130-400); RDW Coefficient of Variation 13.4 % (11.5-14.5); RDW Standard Deviation 41.8 fL (36.4-46.3); White Blood Count 3.61 K/ul (4.8-10.8)
[2023-12-29 08:11] LABS: BUN Creatinine Ratio 13.8 (10-20); Calcium 9.2 mg/dl (8.6-10.3); Chol HDL Ratio 3.9 (0-5); Creatinine Clr Calc Pharmacy 72.6 ml/min; Magnesium 2.2 mg/dl (1.7-2.4); Potassium 3.8 mmol/L (3.5-5.1)
[2023-12-29] MEDS: ENOXAPARIN INJ 40 MG/0.4 ML SYR SQ SCH (08:31)
--- NOTE | 2023-12-29 09:07 | Electrocardiogram Report ---
Test Reason : Blood Pressure : */* mmHG Vent. Rate : 146 BPM Atrial Rate : 60 BPM P-R Int : * ms QRS Dur : 126 ms QT Int : 234 ms P-R-T Axes : * -41 136 degrees QTcB Int : 364 ms Atrial fibrillation with rapid ventricular response Left axis deviation Non-specific intra-ventricular conduction block Minimal voltage criteria for LVH, may be normal variant ( Senthil product ) Inferior infarct Abnormal ECG When compared with ECG of 28-Dec-2023 10:19, Atrial fibrillation has replaced Sinus rhythm Vent. rate has increased by 53 bpm Reconfirmed by Richard Deshpande ([id number]) on 12/29/2023 9:08:57 AM Referred By: REFERRED SELF Confirmed By: Richard Deshpande
--- NOTE | 2023-12-29 09:09 | Electrocardiogram Report ---
Test Reason : Blood Pressure : */* mmHG Vent. Rate : 155 BPM Atrial Rate : 187 BPM P-R Int : * ms QRS Dur : 120 ms QT Int : 346 ms P-R-T Axes : * -47 114 degrees QTcB Int : 555 ms Atrial fibrillation with rapid ventricular response Left axis deviation Left ventricular hypertrophy with QRS widening and repolarization abnormality Non-specific intra-ventricular conduction block Inferior infarct Inferior infarct When compared with ECG of 28-Dec-2023 11:04, No significant change Confirmed by Richard Deshpande ([id number]) on 12/29/2023 9:08:43 AM Referred By: REFERRED SELF Confirmed By: Richard Deshpande
--- NOTE | 2023-12-29 09:10 | Electrocardiogram Report ---
Test Reason : Blood Pressure : */* mmHG Vent. Rate : 81 BPM Atrial Rate : 81 BPM P-R Int : 146 ms QRS Dur : 126 ms QT Int : 380 ms P-R-T Axes : 72 -4 57 degrees QTcB Int : 441 ms Normal sinus rhythm Left bundle branch block Abnormal ECG When compared with ECG of 28-Dec-2023 11:24, Sinus rhythm has replaced Atrial fibrillation Vent. rate has decreased by 65 bpm Left bundle branch block is now Present Confirmed by Richard Deshpande ([id number]) on 12/29/2023 9:10:10 AM Referred By: REFERRED SELF Confirmed By: Richard Deshpande
--- NOTE | 2023-12-29 09:10 | Electrocardiogram Report ---
Test Reason : Blood Pressure : */* mmHG Vent. Rate : 146 BPM Atrial Rate : 288 BPM P-R Int : * ms QRS Dur : 134 ms QT Int : 278 ms P-R-T Axes : * -54 125 degrees QTcB Int : 433 ms Atrial fibrillation with rapid ventricular response Left axis deviation Left ventricular hypertrophy with QRS widening and repolarization abnormality Inferior infarct (cited on or before 28-Dec-2023) Non-specific intra-ventricular conduction block Abnormal ECG When compared with ECG of 28-Dec-2023 11:11, No significant change Confirmed by Richard Deshpande ([id number]) on 12/29/2023 9:09:48 AM Referred By: REFERRED SELF Confirmed By: Richard Deshpande
--- NOTE | 2023-12-29 09:11 | Electrocardiogram Report ---
Test Reason : Blood Pressure : */* mmHG Vent. Rate : 127 BPM Atrial Rate : 125 BPM P-R Int : * ms QRS Dur : 142 ms QT Int : 402 ms P-R-T Axes : * -50 113 degrees QTcB Int : 584 ms Atrial fibrillation with rapid ventricular response Left axis deviation Right bundle branch block Minimal voltage criteria for LVH, may be normal variant Inferior infarct , age undetermined T wave abnormality, consider lateral ischemia Abnormal ECG When compared with ECG of 28-Dec-2023 11:29, Atrial fibrillation has replaced Sinus rhythm Vent. rate has increased by 46 bpm Right bundle branch block has replaced Left bundle branch block Inferior infarct is now Present Confirmed by Richard Deshpande ([id number]) on 12/29/2023 9:11:35 AM Referred By: REFERRED SELF Confirmed By: Richard Deshpande
[2023-12-29] MEDS: SODIUM CHLORIDE 0.65% NA SOLN 45 ML (OCEAN) ONE (09:32)
[2023-12-29] MEDS: ATORVASTATIN 40 MG TAB PO SCH (11:35)
[2023-12-29] MEDS: ASPIRIN 81 MG ECTAB PO SCH (11:35)
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
[2023-12-29] MEDS: METOPROLOL TARTRATE 25 MG TAB PO STA (14:58)
[2023-12-29 16:53] LABS: Estimated Average Glucose 108 mg/dl; Hemoglobin A1C 5.4 % (4.5-5.6)
[2023-12-29] MEDS ORDERED: LORazepam 0.5 MG TAB PO PRN (17:32)
[2023-12-29] MEDS: METOPROLOL TARTRATE 50 MG TAB PO SCH (20:39)
[2023-12-29] MEDS: MELATONIN 3 MG TAB PO PRN (20:39)
[2023-12-29] MEDS: POTASSIUM CHLORIDE / WTR 10 MEQ/100 ML PLCT IV SCH (22:25)
--- NOTE | 2023-12-30 07:37 | Electrocardiogram Report ---
Test Reason : Blood Pressure : */* mmHG Vent. Rate : 101 BPM Atrial Rate : 91 BPM P-R Int : * ms QRS Dur : 142 ms QT Int : 416 ms P-R-T Axes : * 13 -31 degrees QTcB Int : 539 ms Atrial fibrillation with rapid ventricular response with premature ventricular or aberrantly conducte d complexes Left bundle branch block Abnormal ECG When compared with ECG of 29-Dec-2023 05:45, Left bundle branch block has replaced Right bundle branch block Confirmed by Richard Deshpande ([id number]) on 12/30/2023 7:37:09 AM Referred By: REFERRED SELF Confirmed By: Richard Deshpande
[2023-12-30 07:42] LABS: Basophils # (auto) 0.02 K/uL (0.00-0.20); Basophils % (auto) 0.5 %; Eosinophils # (auto) 0.02 K/uL (0.00-0.50); Eosinophils % (auto) 0.5 %; Hematocrit (blood only) 29.9 % (37.0-47.0); Hemoglobin 9.8 g/dl (12.0-16.0); Immature Granulocytes # (auto) 0.01 K/uL (0.01-0.20); Immature Granulocytes % (auto) 0.3 %; Lymphocytes # (auto) 0.86 K/uL (1.20-3.40); Lymphocytes % (auto) 22.1 %; Mean Corpuscular Hemoglobin 28.8 pg (25.0-34.0); Mean Corpuscular Hgb Conc 32.8 g/dL (32.0-36.0); Mean Corpuscular Volume 87.9 fL (80.0-100.0); Mean Platelet Volume 10.3 fL (9.4-12.4); Monocytes # (auto) 0.21 K/uL (0.11-0.59); Monocytes % (auto) 5.4 %; Neutrophils # (auto) 2.78 K/uL (1.40-6.50); Neutrophils % (auto) 71.2 %; Platelet Count 172 K/uL (130-400); RDW Coefficient of Variation 13.5 % (11.5-14.5); RDW Standard Deviation 43.3 fL (36.4-46.3)
[2023-12-30 07:54] LABS: Albumin Globulin Ratio 0.8 (0.9-2); Albumin Level 3.4 gm/dl (3.4-5.0); Bilirubin,Total 0.4 mg/dl (0.2-1.0); Creatinine Clr Calc Pharmacy 72.4 ml/min; Globulin 4.1 gm/dl (2.5-4.0); Phosphorus 3.2 mg/dl (2.5-4.9); Total Protein 7.5 gm/dl (6.0-8.3)
--- NOTE | 2023-12-30 09:25 | Cardiology Progress Note ---
Date of Service December 30, 2023 Assessment & Plan (1) Cerebrovascular accident: (2) Atypical atrial flutter: Plan: Suspected cardioembolic stroke in the setting of chronic left bundle branch block and newly recognized paroxysmal atrial flutter/fibrillation. Patient was in and out of atrial fibrillation / flutter on 12/29/23, then converted to sinus rhythm on 12/29/23 at 21:32, sinus bradycardia in 50s noted in the meantime. Echocardiogram reveals low normal LVEF (50-55%) in the setting of LBBB. The interatrial septum is intact. Neurology input noted and appreciated. Given acute brain injury in the form of ischemic infarct, recommendation from neurology is to hold off on systemic anticoagulation for 5 days to reduce risk of hemorrhagic conversion. Continue aspirin 81 mg daily. Continue metoprolol tartrate 50 mg BID with hold for HR less than 55 bpm. Continue amiodarone infusion for now, possibly stop on 12/31/23. Add amiodarone 200 mg PO BID. Check TSH. LFTs within normal limits. Will plan to repeat PA / lat CXR later this stay for baseline. Total cholesterol is 213, LDL cholesterol 142 mg/dL. Now on atorvastatin 40 mg daily. Remain in hospital on telemetry. Admission and Anticipated Discharge Date Admission Date: December 28, 2023 Subjective Patient seen in cardiology follow up. Feeling well. Still with mild residual discoordination of the left arm , but she feels ongoing improvement. Sinus rhythm noted on telemetry. Physical Exam Physical Exam: Temp Pulse Resp BP Pulse Ox O2 Del Method 37.2 C 74 16 125/68 97 Room Air 12/30/23 07:36 12/30/23 07:36 12/30/23 07:36 12/30/23 07:36 12/30/23 07:36 12/30/23 07:36 General: no acute distress and stated age Eyes: conjunctiva are pink and non-injected, sclera clear Neck: normal jugular venous pulse, no hepatojugular reflux Chest: normal shape and normal respiratory effort Lungs: clear to auscultation and percussion Cardiac Exam: - regular heart sounds, no murmurs, rubs, or gallops, no jugular venous distention Abdomen: abdomen soft, non-tender, no abnormal masses and no hepatosplenomegaly Musculoskeletal: no gait disturbance, no weakness Extremities: no edema and no cyanosis Neuro:awake, conversant, follows commands, Minimal difficulties with left-sided coordination and strength, improved compared to initial presentation Psych: appropriate affect and insight. Results & Data Laboratory Results Cardiac Enzymes 12/30/23 Range/Units 07:05 AST 11 L (13-39) U/L CBC 12/30/23 Range/Units 07:05 WBC 3.90 L (4.8-10.8) K/ul RBC 3.40 L (4.20-5.40) M/uL Hgb 9.8 L (12.0-16.0) g/dl Hct 29.9 L (37.0-47.0) % Plt Count 172 (130-400) K/uL Neut # (Auto) 2.78 (1.40-6.50) K/uL Lymph # (Auto) 0.86 L (1.20-3.40) K/uL [place] # (Auto) 0.21 (0.11-0.59) K/uL Eos # (Auto) 0.02 (0.00-0.50) K/uL Baso # (Auto) 0.02 (0.00-0.20) K/uL Comprehensive Metabolic Panel 12/30/23 Range/Units 07:05 Sodium 134 L (136-145) mmol/L Potassium 4.0 (3.5-5.1) mmol/L Chloride 106 (98-107) mmol/L Carbon Dioxide 21 (21-32) mmol/L BUN 12 (6-23) mg/dl Creatinine 0.80 (0.6-1.2) mg/dl Glucose 98 (70-99(Fasting)) mg/dl Calcium 9.0 (8.6-10.3) mg/dl AST 11 L (13-39) U/L ALT 5 L (7-52) U/L Alkaline Phosphatase 55 (34-104) U/L Total Protein 7.5 (6.0-8.3) gm/dl Albumin 3.4 (3.4-5.0) gm/dl Intake and Output 12/29/23 12/30/23 12/30/23 22:59 06:59 14:59 Intake Total 426.442 / 1759.764 733.322 / 1759.764 Balance 426.442 / 1759.764 733.322 / 1759.764 Intake: IV 226.442 / 559.764 333.322 / 559.764 Amiodarone / D5w 360 mg In 200 226.442 / 359.764 133.322 / 359.764 ml @ 0.5 MG/MIN 16.667 mls/hr IV .Q12H BE Rx#:[id number] Potassium Chloride / Wtr 10 meq 200 / 200 In 100 ml @ 100 mls/hr IV Q1H BE Rx#:[id number] Oral 200 / 1200 400 / 1200 Other: # Unmeasured Voids 1 1 Weight 73.9 kg Weight Measurement Method Built in [facility] Diagnostic Findings Summary transthoracic echocardiogram performed 12/28/2023: Interpretation Summary The study is technically adequate for the evaluation of the referral indication. Sinus rhythm was present during the echocardiogram study. There is normal left ventricular wall thickness. The septal wall motion is abnormal consistent with underlying left bundle branch block. Left ventricular regional wall motion is otherwise normal. Left ventricular systolic function is low normal. Left Ventricular Ejection Fraction = 50-55%. There is no left ventricular apical mural thrombus. The interatrial septum is intact without evidence of PFO, ASD, or [id number] shunt with the administration of agitated saline contrast. There is mild mitral regurgitation. There is mild tricuspid regurgitation. The pulmonary artery systolic pressure is estimated be 39 mmHg (mildly elevated). (1) Cerebrovascular accident CVA mechanism: unspecified Qualified Code(s): I63.9 - Cerebral infarction, unspecified
[2023-12-30] MEDS: AMIODARONE 200 MG TAB PO ONE (09:45)
[2023-12-30 10:32] LABS: Thyroid Stimulating Hormone 3.526 uIu/ml (0.300-4.500)
--- NOTE | 2023-12-30 11:46 | Communication Note ---
Date of Service: December 30, 2023 Sinus bradycardia down to the 30s noted. Patient asymptomatic. Will discontinue IV amiodarone infusion. Continue oral amiodarone, oral metoprolol. Reviewed with nursing.
--- NOTE | 2023-12-30 11:53 | Communication Note ---
Date of Service: December 30, 2023 Moments after stopping amiodarone infusion, reverted back to AF , AFL at 100 bpm. Proceed with metoprolol 5 mg IV x 1 now.
[2023-12-30] MEDS: METOPROLOL TARTRATE 1 MG/ML VIAL IV STA (11:56)
[2023-12-30] MEDS: AMIODARONE 200 MG TAB PO SCH (16:36)
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
[2023-12-31] MEDS: METOPROLOL TARTRATE 1 MG/ML VIAL IV STA (05:44)
[2023-12-31 06:48] LABS: Hematocrit (blood only) 31.8 % (37.0-47.0); Hemoglobin 10.5 g/dl (12.0-16.0); Mean Corpuscular Hemoglobin 28.7 pg (25.0-34.0); Mean Corpuscular Volume 86.9 fL (80.0-100.0); Mean Platelet Volume 10.8 fL (9.4-12.4); Platelet Count 201 K/uL (130-400); RDW Coefficient of Variation 13.2 % (11.5-14.5); RDW Standard Deviation 41.2 fL (36.4-46.3); Red Blood Count 3.66 M/uL (4.20-5.40); White Blood Count 4.09 K/ul (4.8-10.8)
[2023-12-31 07:14] LABS: BUN Creatinine Ratio 20.5 (10-20); Calcium 9.2 mg/dl (8.6-10.3); Creatinine Clr Calc Pharmacy 74.3 ml/min; Magnesium 2.1 mg/dl (1.7-2.4); Phosphorus 3.6 mg/dl (2.5-4.9); Potassium 3.9 mmol/L (3.5-5.1)
[2023-12-31 07:26] LABS: Folate (Folic Acid),Ser orPlas > 22.30 ng/ml (>5.38)
[2023-12-31 07:27] LABS: Vitamin B12 827 pg/ml (180-914)
[2023-12-31 07:33] LABS: Ferritin 209.3 ng/ml (8-388)
--- NOTE | 2023-12-31 14:46 | Cardiology Progress Note ---
Date of Service December 31, 2023 Assessment & Plan (1) Cerebrovascular accident: (2) LBBB (left bundle branch block): Plan: * chronic (3) Atypical atrial flutter: Plan: Suspected cardioembolic stroke in the setting of chronic left bundle branch block and newly recognized paroxysmal atrial flutter/fibrillation. Continue metoprolol tartrate 50 mg p.o. twice daily, amiodarone 200 mg p.o. t wice daily, aspirin 81 mg daily, atorvastatin 40 mg daily. Initial recommendation from neurology was to wait 5 days until initiating anticoagulation. Will therefore start Eliquis on 01/02/2024. Remain in hospital on telemetry. Admission and Anticipated Discharge Date Admission Date: December 28, 2023 Subjective Patient seen in cardiology follow-up. at the bedside. Overall patient feeling well. She went for a walk in the hallway and tolerated it well without any ataxia. She continues to work on the coordination of her left arm which is not back to her previous baseline but she notes a subtle improvement on daily basis. Telemetry reveals sinus bradycardia in the 50s at present. She had 2 brief episodes of recurrent tachycardia consistent with atrial flutter overnight last night, most recent of which was earlier this morning at 6 AM with subsequent spontaneous conversion back to sinus rhythm. Physical Exam Physical Exam: Temp Pulse Resp BP Pulse Ox O2 Del Method 37.2 C 74 16 125/68 97 Room Air 12/30/23 07:36 12/30/23 07:36 12/30/23 07:36 12/30/23 07:36 12/30/23 07:36 12/30/23 07:36 General: no acute distress and stated age Eyes: conjunctiva are pink and non-injected, sclera clear Neck: normal jugular venous pulse, no hepatojugular reflux Chest: normal shape and normal respiratory effort Lungs: clear to auscultation and percussion Cardiac Exam: - regular heart sounds, no murmurs, rubs, or gallops, no jugular venous distention Abdomen: abdomen soft, non-tender, no abnormal masses and no hepatosplenomegaly Musculoskeletal: no gait disturbance, no weakness Extremities: no edema and no cyanosis Neuro:awake, conversant, follows commands, Minimal difficulties with left-sided coordination and strength, improved compared to initial presentation Psych: appropriate affect and insight. Results & Data Vital Signs (Past 12 Hours) Vital Signs Temp Pulse Pulse Resp BP BP Pulse Ox 12/31/23 11:14 36.7 C 54 L 18 117/78 96 12/31/23 07:20 36.8 C 58 L 16 142/79 H 96 12/31/23 05:53 134 H 12/31/23 05:44 50 L O2 Del Method 12/31/23 11:14 Room Air 12/31/23 07:20 Room Air 12/31/23 05:53 12/31/23 05:44 (1) Cerebrovascular accident CVA mechanism: unspecified Qualified Code(s): I63.9 - Cerebral infarction, unspecified
[2023-12-31] MEDS: cefTRIAXone SODIUM 2,000 MG/50 ML BAG IV SCH (17:58)
[2024-01-01] MEDS: METOPROLOL TARTRATE 50 MG TAB PO STA (02:15)
[2024-01-01 07:43] LABS: BUN Creatinine Ratio 23.5 (10-20); Calcium 9.5 mg/dl (8.6-10.3); Creatinine Clr Calc Pharmacy 71.5 ml/min; Magnesium 2.1 mg/dl (1.7-2.4); Phosphorus 3.9 mg/dl (2.5-4.9); Potassium 4.7 mmol/L (3.5-5.1)
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
--- NOTE | 2024-01-01 12:43 | Cardiology Progress Note ---
Date of Service January 01, 2024 Assessment & Plan (1) Cerebrovascular accident: (2) LBBB (left bundle branch block): Plan: * chronic (3) Atypical atrial flutter: Plan: Suspected cardioembolic stroke in the setting of chronic left bundle branch block and newly recognized paroxysmal atrial flutter/fibrillation. Patent with recurrent episodes of atrial fibrillation / flutter since 1:42 am on 01/01/24 with episodes of SR. Change to metoprolol succinate 50 mg p.o. twice daily, amiodarone 200 mg p.o. twice daily, aspirin 81 mg daily, atorvastatin 40 mg daily. Hold parameter for metoprolol changed to less than 50 bpm and it is felt heart rates in the upper 40s to 50s at night in bed are permissible. There has been no symptomatic bradycardia and heart rate have been fine during waking outs. Initial recommendation from neurology was to wait 5 days until initiating anticoagulation. Will therefore start Eliquis on 01/02/2024. Ultimately , will plan for outpatient EP consultation for EP study / ablation 3 months post CVA after on anticoagulation. Remain in hospital on telemetry. Admission and Anticipated Discharge Date Admission Date: December 28, 2023 Subjective Patient feeling well. Slept poorly due to anxiety overnight. Physical Exam Physical Exam: Temp Pulse Resp BP Pulse Ox O2 Del Method 36.6 C 102 H 16 114/82 97 Room Air 01/01/24 11:33 01/01/24 11:33 01/01/24 11:33 01/01/24 11:33 01/01/24 11:33 01/01/24 11:33 General: no acute distress and stated age Eyes: conjunctiva are pink and non-injected, sclera clear Neck: normal jugular venous pulse, no hepatojugular reflux Chest: normal shape and normal respiratory effort Lungs: clear to auscultation and percussion Cardiac Exam: - regular heart sounds, no murmurs, rubs, or gallops, no jugular venous distention Abdomen: abdomen soft, non-tender, no abnormal masses and no hepatosplenomegaly Musculoskeletal: no gait disturbance, no weakness Extremities: no edema and no cyanosis Neuro:awake, conversant, follows commands, Minimal difficulties with left-sided coordination and strength, improved compared to initial presentation Psych: appropriate affect and insight. Results & Data Vital Signs (Past 12 Hours) Vital Signs Temp Pulse Pulse Resp BP Pulse Ox O2 Del Method 01/01/24 11:33 36.6 C 102 H 16 114/82 97 Room Air 01/01/24 09:36 126 H 01/01/24 08:06 36.5 C 119 H 18 114/77 97 Room Air 01/01/24 01:42 36.6 C 67 18 135/80 93 Room Air Laboratory Results Comprehensive Metabolic Panel 01/01/24 Range/Units 06:47 Sodium 143 (136-145) mmol/L Potassium 4.7 D (3.5-5.1) mmol/L Chloride 111 H (98-107) mmol/L Carbon Dioxide 24 (21-32) mmol/L BUN 19 (6-23) mg/dl Creatinine 0.81 (0.6-1.2) mg/dl Glucose 92 (70-99(Fasting)) mg/dl Calcium 9.5 (8.6-10.3) mg/dl Intake and Output 12/31/23 01/01/24 01/01/24 22:59 06:59 14:59 Intake Total 250 / 970 240 / 970 Balance 250 / 970 240 / 970 Intake: IV 50 / 50 cefTRIAXone SODIUM 2,000 mg In 50 / 50 50 ml @ 100 mls/hr IV Q24H [facility] Rx#:[id number] Oral 200 / 920 240 / 920 Other: # Unmeasured Voids 1 1 Weight 73.8 kg Weight Measurement Method Built in [facility] (1) Cerebrovascular accident CVA mechanism: unspecified Qualified Code(s): I63.9 - Cerebral infarction, unspecified
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
[2024-01-01] MEDS: ESCITALOPRAM OXALATE 10 MG TAB PO SCH (20:17)
[2024-01-01] MEDS: METOPROLOL SUCC 50MG EXT REL TAB PO SCH (20:17)
[2024-01-02 08:09] LABS: Hematocrit (blood only) 34.9 % (37.0-47.0); Hemoglobin 11.3 g/dl (12.0-16.0); Mean Corpuscular Hemoglobin 28.1 pg (25.0-34.0); Mean Corpuscular Hgb Conc 32.4 g/dL (32.0-36.0); Mean Corpuscular Volume 86.8 fL (80.0-100.0); Mean Platelet Volume 10.7 fL (9.4-12.4); Platelet Count 216 K/uL (130-400); RDW Coefficient of Variation 13.3 % (11.5-14.5); RDW Standard Deviation 42.1 fL (36.4-46.3); Red Blood Count 4.02 M/uL (4.20-5.40); White Blood Count 3.48 K/ul (4.8-10.8)
[2024-01-02 08:32] LABS: BUN Creatinine Ratio 32.6 (10-20); Calcium 9.2 mg/dl (8.6-10.3); Phosphorus 4.6 mg/dl (2.5-4.9); Potassium 3.8 mmol/L (3.5-5.1)
--- NOTE | 2024-01-02 09:02 | Cardiology Progress Note ---
Date of Service January 02, 2024 Assessment & Plan (1) Cerebrovascular accident: (2) LBBB (left bundle branch block): Plan: * chronic (3) Atypical atrial flutter: Plan: Suspected cardioembolic stroke in the setting of chronic left bundle branch block and newly recognized paroxysmal atrial flutter/fibrillation. Continue metoprolol succinate 50 mg p.o. twice daily, amiodarone 200 mg p.o. twice daily, aspirin 81 mg daily, atorvastatin 40 mg daily. Hold parameter for metoprolol changed to less than 50 bpm and it is felt heart rates in the upper 40s to 50s at night in bed are permissible. There has been no symptomatic bradycardia and heart rates have been fine during waking hours. Initial recommendation from neurology was to wait 5 days until initiating anticoagulation. Plan for Stat CT brain this am, 01/02/24 and if stable, without hemorrhage will start Eliquis. Ok to be off monitor for CT Ultimately , will plan for outpatient EP consultation for EP study / ablation 3 months post CVA after on anticoagulation. Remain in hospital on telemetry. Admission and Anticipated Discharge Date Admission Date: December 28, 2023 Subjective Patient seen in follow up. Left hand paresthesias persists, but are not worse. Denies chest pain or shortness of breath. Conversant. Currently sinus bradycardia in the 50s noted on telemetry. Had recurrent AF/ AFL on 01/01/24 from 17:03 to 19:30 and another brief episode at 22:47. Physical Exam Physical Exam: Temp Pulse Resp BP Pulse Ox O2 Del Method 36.8 C 50 L 16 110/67 97 Room Air 01/02/24 07:56 01/02/24 07:56 01/02/24 07:56 01/02/24 07:56 01/02/24 07:56 01/02/24 07:56 General: no acute distress and stated age Eyes: conjunctiva are pink and non-injected, sclera clear Neck: normal jugular venous pulse, no hepatojugular reflux Chest: normal shape and normal respiratory effort Lungs: clear to auscultation and percussion Cardiac Exam: - regular heart sounds, no murmurs, rubs, or gallops, no jugular venous distention Abdomen: abdomen soft, non-tender, no abnormal masses and no hepatosplenomegaly Musculoskeletal: no gait disturbance, no weakness Extremities: no edema and no cyanosis Neuro:awake, conversant, follows commands, Minimal difficulties with left-sided coordination and strength, improved compared to initial presentation Psych: appropriate affect and insight. Results & Data Vital Signs (Past 12 Hours) Vital Signs Temp Pulse Pulse Resp BP Pulse Ox O2 Del Method 01/02/24 07:56 36.8 C 50 L 16 110/67 97 Room Air 01/02/24 03:11 36.6 C 53 L 14 132/72 99 Room Air 01/01/24 22:58 36.4 C L 56 L 16 141/82 H 98 Room Air 01/01/24 21:53 46 L Laboratory Results CBC 01/02/24 Range/Units 07:19 WBC 3.48 L (4.8-10.8) K/ul RBC 4.02 L (4.20-5.40) M/uL Hgb 11.3 L (12.0-16.0) g/dl Hct 34.9 L (37.0-47.0) % Plt Count 216 (130-400) K/uL Comprehensive Metabolic Panel 01/02/24 Range/Units 07:19 Sodium 139 (136-145) mmol/L Potassium 3.8 (3.5-5.1) mmol/L Chloride 110 H (98-107) mmol/L Carbon Dioxide 21 (21-32) mmol/L BUN 31 H (6-23) mg/dl Creatinine 0.95 (0.6-1.2) mg/dl Glucose 92 (70-99(Fasting)) mg/dl Calcium 9.2 (8.6-10.3) mg/dl Intake and Output 01/01/24 01/02/24 01/02/24 22:59 06:59 14:59 Intake Total 650 / 650 Balance 650 / 650 Intake: IV 50 / 50 cefTRIAXone SODIUM 2,000 mg In 50 / 50 50 ml @ 100 mls/hr IV Q24H [facility] Rx#:[id number] Oral 600 / 600 Other: Weight 73.8 kg Weight Measurement Method Built in [facility] (1) Cerebrovascular accident CVA mechanism: unspecified Qualified Code(s): I63.9 - Cerebral infarction, unspecified
--- NOTE | 2024-01-02 09:50 | CT Scan Report ---
CT OF THE HEAD WITHOUT CONTRAST CLINICAL HISTORY: right parietal lobe infarct on MRI COMPARISON STUDY: Head CT and MRI of the brain December 28, 2023. CT DOSE: 625.8 mGy.cm TECHNIQUE: Helical axial images of the head were obtained without IV contrast. Automated exposure con trol was utilized for the study. A dose lowering technique was utilized adhering to the principles o f ALARA. FINDINGS: No acute intracranial hemorrhage, midline shift or mass effect is present. A 4.2 cm hypoden se focus with loss of lanza-white differentiation within the right frontoparietal region represents an acute infarct, as shown on MRI of December 28, 2023. The ventricular system is stable. The basal cis terns are patent. There are no extra-axial collections. IMPRESSION: Expected evolution of a 4.2 cm acute right frontoparietal infarct. No significant mass ef fect. No evidence for hemorrhagic conversion. ACT 112: Negative or not required by law. Electronically signed by: Fuad Ramos M.D. 01/02/2024 9:49 AM
--- NOTE | 2024-01-02 10:08 | Communication Note ---
Date of Service: January 02, 2024 CT scan with stable findings. No hemorrhagic conversion. Discontinue aspirin. Start Eliquis 5 mg twice daily, first dose now.
[2024-01-02] MEDS: APIXABAN 5 MG TABLET PO SCH (11:20)
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
[2024-01-02] MEDS: cephALEXin 500 MG CAP PO SCH (20:42)
[2024-01-03 08:02] LABS: BUN Creatinine Ratio 28.9 (10-20); Calcium 9.1 mg/dl (8.6-10.3); Creatinine Clr Calc Pharmacy 62.3 ml/min
[2024-01-03 08:23] VITALS: RESP 18; TEMP 97.3; O2SAT 97
--- NOTE | 2024-01-03 09:11 | Cardiology Progress Note ---
Date of Service January 03, 2024 Assessment & Plan (1) Cerebrovascular accident: (2) LBBB (left bundle branch block): Plan: * chronic (3) Paroxysmal atrial fibrillation: (4) Atypical atrial flutter: Plan: Suspected cardioembolic stroke in the setting of chronic left bundle branch block and newly recognized paroxysmal atrial flutter/fibrillation. Initial recommendation from neurology was to wait 5 days before starting anticoagulation in effort to reduce risk of hemorrhagic transformation given recent brain injury. Noncontrast CT performed 01/02/2024 with stable findings and patient has therefore started Eliquis and has tolerated it well thus far. Continue metoprolol succinate 50 mg twice daily. Continue amiodarone 200 mg by mouth twice daily (hopeful that this will be a short course of treatment with amiodarone). Continue Eliquis 5 mg twice daily. Eliquis has replaced aspirin. Continue atorvastatin 40 mg daily. Continue Keflex for superficial right arm skin wound. Ultimately , will plan for outpatient EP consultation for EP study / ablation 3 months post CVA after on anticoagulation. Patient stable for discharge from a cardiac perspective on medications as noted above. Patient and tell me they received their medications from [facility] which is closed today (Thursday). Perhaps our pharmacy can provide a 2 dose discharge pack for her to take her dose of Eliquis tonight and tomorrow morning until she can get to the pharmacy tomorrow. Recommend patient receives Eliquis discount card. Will arrange cardiology / EP follow up. FMLA questions can be addressed at follow up with PCP. Admission and Anticipated Discharge Date Admission Date: December 28, 2023 Subjective Patient seen in follow up. Left hand paresthesias persists, but are not worse. Denies chest pain or shortness of breath. Conversant. Tolerated first two doses of Eliquis on 01/02/24 well. Denies subjective palpitations Currently sinus bradycardia in the 50s noted on telemetry.Sinus bradycardia in the 40s noted overnight. Had recurrent AF/ AFL on 01/01/24 from 17:03 to 19:30 and another brief episode at 22:47 on 01/01/24. Physical Exam Physical Exam: General: no acute distress and stated age Eyes: conjunctiva are pink and non-injected, sclera clear Neck: normal jugular venous pulse, no hepatojugular reflux Chest: normal shape and normal respiratory effort Lungs: clear to auscultation and percussion Cardiac Exam: - regular heart sounds, no murmurs, rubs, or gallops, no jugular venous distention Abdomen: abdomen soft, non-tender, no abnormal masses and no hepatosplenomegaly Musculoskeletal: no gait disturbance, no weakness Extremities: no edema and no cyanosis Neuro:awake, conversant, follows commands, Minimal difficulties with left-sided coordination and strength, improved compared to initial presentation Psych: appropriate affect and insight. Results & Data Vital Signs (Past 12 Hours) Vital Signs Temp Pulse Pulse Resp BP Pulse Ox O2 Del Method 01/03/24 08:22 36.3 C L 50 L 18 104/67 97 Room Air 01/03/24 07:50 42 L 01/03/24 02:58 36.4 C L 48 L 16 116/72 99 Room Air 01/02/24 23:18 49 L 01/02/24 23:04 36.3 C L 52 L 16 125/82 100 Room Air Diagnostic Findings Non contrast CT brain 01/02/24: IMPRESSION: Expected evolution of a 4.2 cm acute right frontoparietal infarct. No significant mass effect. No evidence for hemorrhagic conversion. (1) Cerebrovascular accident CVA mechanism: unspecified Qualified Code(s): I63.9 - Cerebral infarction, unspecified
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
[2024-01-03 10:14] VITALS: BP 143/75; PULSE 118
--- NOTE | 2024-01-04 15:46 | Electrocardiogram Report ---
Test Reason : Blood Pressure : */* mmHG Vent. Rate : 117 BPM Atrial Rate : 113 BPM P-R Int : * ms QRS Dur : 140 ms QT Int : 406 ms P-R-T Axes : * -49 115 degrees QTcB Int : 566 ms Atrial fibrillation Left axis deviation Right bundle branch block Left ventricular hypertrophy with repolarization abnormality Inferior infarct , age undetermined Abnormal ECG When compared with ECG of 29-Dec-2023 20:15, Right bundle branch block has replaced Left bundle branch block Inferior infarct is now Present Confirmed by Cholo Trinidad ([id number] on 01/04/2024 3:46:15 PM Referred By: REFERRED SELF Confirmed By: Cholo Trinidad
== END 2024-01-03 11:00 | disposition home or self-care (01) | DRG 65 ==
LOC: ED 10:09 → 2S 12:22 → SUATTDRO 12:22 → 2S 14:29